=== PATIENT | male | born 1940 | race Caucasian/White ===

== ENCOUNTER 2018-01-11 20:54 | Inpatient (IN) ==
--- NOTE | 2018-01-11 21:38 | XR ---
EXAM DATE: 01/11/2018 9:33 PM EST AGE/SEX: 77 years / Male INDICATIONS: Shortness of breath. CLINICAL DATA: This is the patient's initial encounter. Patient reports that signs and symptoms have been present for 1 day and indicates a pain score of 0/10. MEDICAL/SURGICAL HISTORY: Myocardial infarction. CAD. A-fib. CABG. COMPARISON: C, CHEST 1V SINGLE AP, 01/10/2018. . FINDINGS: Small right and moderate left pleural effusions with basilar consolidation present. No pneumothorax s een on either side. Heart size stable, mildly enlarged. Median sternotomy and valve replacement changes are again noted. CONCLUSION: Worsening consolidation and pleural effusions at both bases, left worse than right. Electronically signed by: Estuardo Zepeda MD 01/11/2018 9:37 PM EST
[2018-01-11 22:14] LABS: Baso % (Auto) 0.3 % (0.0-2.0); Eos # (Auto) 0.2 th/mm3 (0.0-0.4); Eos % (Auto) 1.8 % (0.0-4.0); Hematocrit 33.4 % (39.0-51.0); Hemoglobin 10.7 gm/dL (13.0-17.0); Lymph # (Auto) 0.5 th/mm3 (1.0-4.8); Lymph % (Auto) 4.4 % (9.0-44.0); Mean Corpuscular HGB Conc 32.2 % (32.0-36.0); Mean Corpuscular Volume 86.9 fL (80.0-100.0); Mean Platelet Volume 8.4 fL (7.0-11.0); Mono # (Auto) 0.7 th/mm3 (0.0-0.9); Mono % (Auto) 6.8 % (0.0-8.0); Neut % (Auto) 86.7 % (16.0-70.0); Platelet Count 234 th/mm3 (150-450); Red Blood Count 3.84 mil/mm3 (4.50-5.90); Red Cell Distribution Width 16.8 % (11.6-17.2); White Blood Count 10.4 th/mm3 (4.0-11.0)
[2018-01-11 22:32] LABS: Alanine Aminotransferase 19 U/L (12-78); Albumin 2.4 g/dL (3.4-5.0); Anion Gap 5 meq/L (5-15); Aspartate Aminotransferase 26 U/L (15-37); Blood Urea Nitrogen 21 mg/dL (7-18); Calcium 8.2 mg/dL (8.5-10.1); Carbon Dioxide 29.4 meq/L (21.0-32.0); Chloride 104 meq/L (98-107); Glomerular Filtration Rate 60 mL/min (>89); Glucose,Random 91 mg/dL (74-106); Potassium 4.3 meq/L (3.5-5.1); Sodium 138 meq/L (136-145)
[2018-01-11 22:39] LABS: Alkaline Phosphatase 72 U/L (45-117); Total Protein 6.1 g/dL (6.4-8.2)
[2018-01-11 22:43] LABS: Troponin I 0.64 ng/mL (0.02-0.05)
--- NOTE | 2018-01-11 22:57 | ED ---
HPI General Chief complaint: Respiratory Symptoms Stated complaint: cardiac Time Seen by Provider: 01/11/18 21:17 Source: EMS Mode of arrival: EMS Limitations: no limitations History of Present Illness HPI narrative: 77-year-old male came to the emergency room with history of shortness of breath that started developing this morning. Patient had his CABG 5 days back and was discharged from the hospital to the rehab. The night nurse checked on him and called EMS since his oxygen saturation was in the mid 80s. EMS applied a nasal cannula on 3 L which made the oxygen saturation go up to the 90s. They also did an EKG at the group home which was read by the machine a STEMI. The nurse talked to the doctor who recommended that patient should come to the emergency room to be evaluated. Patient denies any chest pain. He says he has been short of breath but after the oxygen shortness of breath feels much better. Vital signs were stable upon arrival. Patient was afebrile. Related Data Previous Rx's Medication Instructions Recorded amiodarone 400 mg PO Q12HR #30 tab 01/08/18 apixaban [Eliquis] 5 mg PO BID tab 01/08/18 aspirin 81 mg PO DAILY tab 01/08/18 atorvastatin 40 mg PO HS tab 01/08/18 budesonide-formoterol [Symbicort] 1 puff INH BID g 01/08/18 cholecalciferol (vitamin D3) 2,000 unit PO DAILY tab 01/08/18 [Vitamin D3] diltiazem HCl 240 mg PO DAILY cap 01/08/18 docusate sodium [DOK] 100 mg PO BID cap 01/08/18 duloxetine 60 mg PO DAILY cap 01/08/18 hydrocodone-acetaminophen 1 tab PO Q4H PRN #30 tab 01/08/18 uqukmamb-neri-HM-calcium-mins 1 tab PO DAILY tab 01/08/18 [Thera M Plus (ferrous fumarat)] Allergies Allergy/AdvReac Type Severity Reaction Status Date / Time No Known Allergies Allergy Verified 01/11/18 21:21 Review of Systems ROS: all other systems reviewed are negative FOR[facility]LY [facility] Medical History Medical History Coronary artery disease (Acute) Patient denies medical problems (Acute) Surgical History Surgical History S/P wrist surgery (Acute) Family History Family History Mother Age older than 85 years Father Age older than 85 years Social History Social History Substance History: No History of Abuse Second Hand Smoke Exposure: No Smoking Status: Former smoker Tobacco Type: Cigarettes How Often Do You Have a Drink Containing Alcohol: Never Recent Travel in [facility] within the Last 8 Weeks: No Recent Out of Country Travel within the Last 8 Weeks: No Immunization History Tetanus Immunization: Unsure Exam Narrative Exam Narrative: GENERAL: Awake, alert, moderate distress SKIN: Focused skin assessment warm/dry. Pale HEAD: Atraumatic. Normocephalic. EYES: Pupils equal and round. No scleral icterus. No injection or drainage. ENT: No nasal bleeding or discharge. Mucous membranes pink and moist. NECK: Trachea midline. No JVD. CARDIOVASCULAR: Regular rate and rhythm. No murmur appreciated. Chest surgical wound appears to be healing well. RESPIRATORY: No accessory muscle use. Clear to auscultation. Breath sounds equal bilaterally. GASTROINTESTINAL: Abdomen soft, non-tender, nondistended. Hepatic and splenic margins not palpable. MUSCULOSKELETAL: No obvious deformities. No clubbing. No cyanosis. Bilateral pedal edema. NEUROLOGICAL: Awake and alert. No obvious cranial nerve deficits. Motor grossly within normal limits. Normal speech. PSYCHIATRIC: Appropriate mood and affect; insight and judgment normal. Course Initial Documented Vital Signs Pulse Oximetry 99 01/11/18 21:18 Last Documented Vital Signs Temperature 98.3 F 01/12/18 16:00 Pulse Rate 74 01/12/18 17:27 Respiratory Rate 18 01/12/18 16:00 Blood Pressure 118/69 01/12/18 16:00 Pulse Oximetry 98 01/12/18 16:00 Medical Decision Making MDM Narrative Medical decision making narrative: 11 PM blood test results are back. Chest x- ray suggestive of worsening pleural effusion as per the radiologist. Patient was given 40 mg of IV Lasix. I discussed the case with the hospitalist who has admitted the patient. I discussed it with Dr. Andrade who is on-call for thoracic surgery and he will consult on the patient in the morning. Medical Screen Exam Complete: Yes Emergency Medical Condition: Yes Lab Data Result diagrams: 01/12/18 03:12 01/12/18 03:12 Lab Results 01/11/18 01/11/18 01/11/18 Range/Units 21:28 21:28 21:28 WBC 10.4 (4.0-11.0) th/mm3 RBC 3.84 L (4.50-5.90) mil/mm3 Hgb 10.7 L (13.0-17.0) gm/dL Hct 33.4 L (39.0-51.0) % MCV 86.9 (80.0-100.0) fL MCH 28.0 (27.0-34.0) pg MCHC 32.2 (32.0-36.0) % RDW 16.8 (11.6-17.2) % Plt Count 234 D (150-450) th/mm3 MPV 8.4 (7.0-11.0) fL Neut % (Auto) 86.7 H (16.0-70.0) % Lymph % (Auto) 4.4 L (9.0-44.0) % [place] % (Auto) 6.8 (0.0-8.0) % Eos % (Auto) 1.8 (0.0-4.0) % Baso % (Auto) 0.3 (0.0-2.0) % Neut # (Auto) 9.0 H (1.8-7.7) th/mm3 Lymph # (Auto) 0.5 L (1.0-4.8) th/mm3 [place] # (Auto) 0.7 (0.0-0.9) th/mm3 Eos # (Auto) 0.2 (0.0-0.4) th/mm3 Baso # (Auto) 0.0 (0.0-0.2) th/mm3 WBC Differential . Differential Comment Auto diff final Sodium 138 (136-145) meq/L Potassium 4.3 (3.5-5.1) meq/L Chloride 104 (98-107) meq/L Carbon Dioxide 29.4 (21.0-32.0) meq/L Anion Gap 5 (5-15) meq/L BUN 21 H (7-18) mg/dL Creatinine 1.18 (0.60-1.30) mg/dL Estimated GFR 60 L (>89) mL/min Random Glucose 91 (74-106) mg/dL Calcium 8.2 L (8.5-10.1) mg/dL Total Bilirubin 0.8 (0.2-1.0) mg/dL AST 26 (15-37) U/L ALT 19 (12-78) U/L Alkaline Phosphatase 72 (45-117) U/L Troponin I 0.64 H* (0.02-0.05) ng/mL B-Natriuretic Peptide 532 H (0-100) pg/mL Total Protein 6.1 L (6.4-8.2) g/dL Albumin 2.4 L (3.4-5.0) g/dL 01/12/18 01/12/18 01/12/18 Range/Units 03:12 03:12 11:02 WBC 10.1 (4.0-11.0) th/mm3 RBC 3.55 L (4.50-5.90) mil/mm3 Hgb 10.0 L (13.0-17.0) gm/dL Hct 30.1 L (39.0-51.0) % MCV 84.9 (80.0-100.0) fL MCH 28.3 (27.0-34.0) pg MCHC 33.4 (32.0-36.0) % RDW 16.9 (11.6-17.2) % Plt Count 225 (150-450) th/mm3 MPV 7.4 (7.0-11.0) fL Neut % (Auto) 83.8 H (16.0-70.0) % Lymph % (Auto) 4.8 L (9.0-44.0) % [place] % (Auto) 8.3 H (0.0-8.0) % Eos % (Auto) 2.8 (0.0-4.0) % Baso % (Auto) 0.3 (0.0-2.0) % Neut # (Auto) 8.4 H (1.8-7.7) th/mm3 Lymph # (Auto) 0.5 L (1.0-4.8) th/mm3 [place] # (Auto) 0.8 (0.0-0.9) th/mm3 Eos # (Auto) 0.3 (0.0-0.4) th/mm3 Baso # (Auto) 0.0 (0.0-0.2) th/mm3 WBC Differential . Differential Comment Auto diff final Sodium 138 (136-145) meq/L Potassium 3.7 (3.5-5.1) meq/L Chloride 104 (98-107) meq/L Carbon Dioxide 28.1 (21.0-32.0) meq/L Anion Gap 6 (5-15) meq/L BUN 22 H (7-18) mg/dL Creatinine 1.22 (0.60-1.30) mg/dL Estimated GFR 58 L (>89) mL/min Random Glucose 92 (74-106) mg/dL Calcium 8.3 L (8.5-10.1) mg/dL Total Bilirubin 0.8 (0.2-1.0) mg/dL AST 20 (15-37) U/L ALT 17 (12-78) U/L Alkaline Phosphatase 67 (45-117) U/L Troponin I 0.63 H* 0.56 H (0.02-0.05) ng/mL B-Natriuretic Peptide (0-100) pg/mL Total Protein 5.8 L (6.4-8.2) g/dL Albumin 2.3 L (3.4-5.0) g/dL Imaging Data Radiologist's impression: Chest X-Ray 01/11/18 21:18 CONCLUSION: Worsening consolidation and pleural effusions at both bases, left worse than right. ECG Data EKG Prior to Arrival: Yes Attestation: I personally reviewed and interpreted this ECG as follows: Prior ECG tracings: available for review Interpretation: Twelve-lead EKG was reviewed by me. Atrial fibrillation, normal axis, intraventricular conduction delay. Heart rate of 90 bpm Discharge Plan Physicians Team ED Provider: Sunshine Ruiz Primary Care Provider: Primary Care Misai,No Attending Provider: Hollis Kelsey Other Providers: Dea Rowell Sohit K Status ED Status: Left Department Discharge Information Discharge Date/Time: 01/12/18 00:34
[2018-01-11] MEDS ORDERED: Acetaminophen 325 MG Tablet PO PRN (23:02)
[2018-01-11] MEDS ORDERED: Bisacodyl 10 MG Supp RECTAL PRN (23:02)
[2018-01-11] MEDS ORDERED: Morphine Sulfate Inj 2 MG/ML Vial IV.PUSH PRN (23:07)
--- NOTE | 2018-01-11 23:09 | P.HPIM ---
History of Present Illness Primary Care Physician: No Primary Care Physician History of Present Illness: This is a 77-year-old male with a PMH of HTN, CHF (TIEN 12/25/17 w/ EF 45-50%), s/ p CABG/AVR/MVR and A-fib on Eliquis who was sent to the ER from [facility] for c/o SOB and hypoxia. Pt poor historian, lethargic on exam, but able to answer few questions, history obtained from daughter at bedside. Pt w/ recent admit 12/23-01/09/18 for NSTEMI, s/p Cath w/ multivessel disease, Echo 12/23 w/ severe /MR, TIEN 12/25/17 w/ EF 45-50%, s/p CABG, AVR and MVR by Dr. Valera on 12/30/17, ultimately discharged to Rehab after prolonged hospitalization. Daughter states he had been doing well after chest tube removal w/ no c/o SOB, yesterday Daughter noted to be more SOB than baseline, especially w/ ambulation to the restroom. States he had PT today without difficulty, however later on pt w/ worsening c/o SOB. Daughter notes increased lower extremity edema. Per EMS, O2 sat 80's. On arrival, BP 136/80, HR 92, O2 sat 96% on RA, Afebrile. CBC essentially unremarkable. Chemistry is essentially unremarkable except for BUN 21, GFR 60. Troponin 0 0.64, BNP 532. CXR with worsening consolidation and pleural effusions at both bases, left worse than right. S/p Lasix in ER. Dr. Funes consulted by ER physician, no immediate surgical intervention at this time. - Diagnosis (1) CHF (congestive heart failure) (2) Hypoxia (3) Elevated troponin (4) Afib (5) Decubitus skin ulcer (6) S/P AVR (7) S/P mitral valve repair (8) S/P CABG x 3 Review of Systems PAST FAMILY HISTORY: Reviewed. 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 - Medical History Medical History: Medical History (Last Reviewed 01/11/18 @ 22:55 by Sunshine Ruiz MD) Coronary artery disease Patient denies medical problems - Surgical History Surgical History: Surgical History (Last Reviewed 01/11/18 @ 22:55 by Sunshine Ruiz MD) S/P wrist surgery - Family History Family History: Family History (Last Reviewed 01/11/18 @ 22:55 by Sunshine Ruiz MD) Mother Age older than 85 years Father Age older than 85 years - Tobacco History Second Hand Smoke Exposure: No Smoking Status: Former smoker Tobacco Type: Cigarettes - Alcohol History How Often Do You Have a Drink Containing Alcohol: Never - Substance Use History Substance History: No History of Abuse - Travel History Recent Travel in the [place] Within the Last 8 Weeks: No Recent Travel Out of the Country Within the Last 8 Weeks: No - Immunization History Tetanus Immunization: Unsure Medications and Allergies Allergies Allergy/AdvReac Type Severity Reaction Status Date / Time No Known Allergies Allergy Verified 01/11/18 21:21 Exam Vital signs: Vital Signs 01/11/18 21:18 01/11/18 21:19 01/11/18 21:23 Temperature 97.8 F Pulse Rate 92 H 98 H Respiratory Rate 18 18 Blood Pressure 136/60 118/77 Pulse Oximetry 99 96 100 01/11/18 22:14 Temperature Pulse Rate 93 H Respiratory Rate 18 Blood Pressure 116/65 Pulse Oximetry 98 Narrative: PE: GENERAL: Elderly white male in no acute distress, sleeping, but opens eyes to name/answers questions. Daughter at bedside SKIN: Focused skin assessment warm and dry. HEENT: PERRLA, EOMI. No scleral icterus or conjunctival pallor. No lid lag or facial droop. CARDIOVASCULAR: Irregular irregular, in A-fib, rate controlled. No obvious murmurs to auscultation. No chest tenderness to palpation. Surgical scar healing well. Chest tube sites healing well, mild erythema, no purulent drainage. RESPIRATORY: No obvious rhonchi or wheezing. Clear to auscultation. Breath sounds equal bilaterally. GASTROINTESTINAL: Abdomen soft, non-tender, nondistended. BS normal. MUSCULOSKELETAL: Extremities without clubbing, cyanosis. 2+ edema. No obvious deformities. NEUROLOGICAL: Awake, alert and oriented x4. No focal neurologic deficits. Moving both upper and lower extremities spontaneously. PSYCHIATRIC: Appropriate mood and affect. Insight and judgment normal. Results - Labs CBC & Chem 7: 01/11/18 21:28 01/11/18 21:28 Labs: Short CBC 01/11/18 Range/Units 21:28 WBC 10.4 (4.0-11.0) th/mm3 Hgb 10.7 L (13.0-17.0) gm/dL Hct 33.4 L (39.0-51.0) % Plt Count 234 D (150-450) th/mm3 BMP 01/11/18 21:28 Sodium 138 Potassium 4.3 Chloride 104 Carbon Dioxide 29.4 BUN 21 H Creatinine 1.18 Calcium 8.2 L Cardiac Enzymes 01/11/18 Range/Units 21:28 Troponin I 0.64 H* (0.02-0.05) ng/mL Liver Function 01/11/18 Range/Units 21:28 Total Bilirubin 0.8 (0.2-1.0) mg/dL AST 26 (15-37) U/L ALT 19 (12-78) U/L Alkaline Phosphatase 72 (45-117) U/L Albumin 2.4 L (3.4-5.0) g/dL - Imaging Impressions Chest X-Ray 01/11/18 21:18 CONCLUSION: Worsening consolidation and pleural effusions at both bases, left worse than right. Caprini VTE Risk Assessment Caprini VTE Risk Assessment: Moderate/High Risk (score >= 2) Caprini Risk Assessment Model: Point Value = 1 Point Value = 2 Point Value = 3 Point Value = 5 Age 41-60 Minor surgery BMI > 25 kg/m2 Swollen legs Varicose veins or History of unexplained or recurrent spontaneous Oral contraceptives or hormone replacement Sepsis (< 1 month) Serious lung disease, including pneumonia (< 1 month) Abnormal pulmonary function Acute myocardial infarction Congestive heart failure (< 1 month) History of inflammatory bowel disease Medical patient at bed rest Age 61-74 Arthroscopic surgery Major open surgery (> 45 min) Laparoscopic surgery (> 45 min) Malignancy Confined to bed (> 72 hours) Immobilizing plaster cast Central venous access Age >= 75 History of VTE Family history of VTE Factor V Leiden Prothrombin [id number] Lupus anticoagulant Anticardiolipin antibodies Elevated serum homocysteine Heparin-induced thrombocytopenia Other congenital or acquired thrombophilia Stroke (< 1 month) Elective arthroplasty Hip, pelvis, or leg fracture Acute spinal cord injury (< 1 month) Prophylaxis Regimen: Total Risk Factor Score Risk Level Prophylaxis Regimen 0-1 Low Early ambulation 2 Moderate Order ONE of the following: *Sequential Compression Device (SCD) *Heparin 5000 units SQ BID 3-4 Higher Order ONE of the following medications: *Heparin 5000 units SQ TID *Enoxaparin/Lovenox 40 mg SQ daily (WT < 150 kg, CrCl > 30 mL/min) *Enoxaparin/Lovenox 30 mg SQ daily (WT < 150 kg, CrCl > 10-29 mL/min) *Enoxaparin/Lovenox 30 mg SQ BID (WT < 150 kg, CrCl > 30 mL/min) AND/OR *Sequential Compression Device (SCD) 5 or more Highest Order ONE of the following medications: *Heparin 5000 units SQ TID (Preferred with Epidurals) *Enoxaparin/Lovenox 40 mg SQ daily (WT < 150 kg, CrCl > 30 mL/min) *Enoxaparin/Lovenox 30 mg SQ daily (WT < 150 kg, CrCl > 10-29 mL/min) *Enoxaparin/Lovenox 30 mg SQ BID (WT < 150 kg, CrCl > 30 mL/min) AND *Sequential Compression Device (SCD) Assessment and Plan - Assessment (1) CHF (congestive heart failure) Code(s): I50.9 - Heart failure, unspecified Status: Acute (2) Hypoxia Code(s): R09.02 - Hypoxemia Status: Acute (3) Elevated troponin Code(s): R74.8 - Abnormal levels of other serum enzymes Status: Acute (4) Afib Code(s): I48.91 - Unspecified atrial fibrillation Status: Acute (5) Decubitus skin ulcer Code(s): L89.90 - Pressure ulcer of unspecified site, unspecified stage Status : Acute (6) S/P AVR Code(s): Z95.2 - Presence of prosthetic heart valve Status: Acute (7) S/P mitral valve repair Code(s): Z98.890 - Other specified postprocedural states Status: Acute (8) S/P CABG x 3 Code(s): Z95.1 - Presence of aortocoronary bypass graft Status: Acute - Plan A/P: 1. CHF: Acute on Chronic. Systolic. TIEN 12/25/17 w/ EF 45-50%, CXR w/ worsening consolidation/pleural effusions bilaterally, images reviewed. BNP 532. S/p Lasix in ER, will continue w/ diuresis, monitor I/O, monitor renal function closely. 2. S/p CABG/AVR/MVR: 12/30/[address] Valera, will check Echo to eval for any valve abnormality in light of recent surgical intervention. Dr. Funes consulted by ER physician, no immediate surgical intervention at this time. 3. Elevated Trop: Trop 0.64, likely due to recent cardiac intervention, no c/ o chest pain. Will admit to [facility] for close monitoring, telemetry, check serial cardiac enzymes for trend. Follows w/ Dr. Howard, will place consult for further recommendations. 4. Hypoxia: O2 sat 80's per EMS, currently 96% on RA since arrival, likely compounded by acute CHF in addition to narcotic medications as daughter notes increased lethargy while on pain medications, monitor O2, DuoNeb-substitute for Xopenex in light of A-fib 5. A-fib: Chronic. Resume home Cardizem, Amiodarone and Eliquis. 6. Decubitus Ulcer: present on arrival, consult Wound Management for further eval. 7. DVT Prophylaxis: Eliquis 8. Social work for d/c planning as needed. PT for eval/tx 9. Case discussed w/ ER physician at length, labs/records/imaging reviewed by me.
[2018-01-11] MEDS ORDERED: RESP: Levalbuterol 1.25 MG/3 ML Neb (PRN) NEB (23:44)
[2018-01-12 03:23] LABS: Baso % (Auto) 0.3 % (0.0-2.0); Eos # (Auto) 0.3 th/mm3 (0.0-0.4); Eos % (Auto) 2.8 % (0.0-4.0); Hematocrit 30.1 % (39.0-51.0); Lymph # (Auto) 0.5 th/mm3 (1.0-4.8); Lymph % (Auto) 4.8 % (9.0-44.0); Mean Corpuscular HGB Conc 33.4 % (32.0-36.0); Mean Corpuscular Hemoglobin 28.3 pg (27.0-34.0); Mean Corpuscular Volume 84.9 fL (80.0-100.0); Mean Platelet Volume 7.4 fL (7.0-11.0); Mono # (Auto) 0.8 th/mm3 (0.0-0.9); Mono % (Auto) 8.3 % (0.0-8.0); Neut # (Auto) 8.4 th/mm3 (1.8-7.7); Neut % (Auto) 83.8 % (16.0-70.0); Platelet Count 225 th/mm3 (150-450); Red Blood Count 3.55 mil/mm3 (4.50-5.90); Red Cell Distribution Width 16.9 % (11.6-17.2); White Blood Count 10.1 th/mm3 (4.0-11.0)
[2018-01-12 03:43] LABS: Alanine Aminotransferase 17 U/L (12-78); Albumin 2.3 g/dL (3.4-5.0); Anion Gap 6 meq/L (5-15); Aspartate Aminotransferase 20 U/L (15-37); Blood Urea Nitrogen 22 mg/dL (7-18); Calcium 8.3 mg/dL (8.5-10.1); Carbon Dioxide 28.1 meq/L (21.0-32.0); Chloride 104 meq/L (98-107); Glomerular Filtration Rate 58 mL/min (>89); Glucose,Random 92 mg/dL (74-106); Potassium 3.7 meq/L (3.5-5.1); Sodium 138 meq/L (136-145)
[2018-01-12 03:47] LABS: Alkaline Phosphatase 67 U/L (45-117); Total Protein 5.8 g/dL (6.4-8.2)
[2018-01-12 03:52] LABS: Troponin I 0.63 ng/mL (0.02-0.05)
[2018-01-12] MEDS ORDERED: Amiodarone 200 MG Tablet PO SCH (09:00)
[2018-01-12] MEDS: Duloxetine 60 MG DR Capsule PO SCH (09:12)
[2018-01-12] MEDS: Amiodarone 200 MG Tablet PO SCH ×2 (09:12→20:08)
[2018-01-12] MEDS: dilTIAZem CD 240 MG Capsule PO SCH (09:12)
[2018-01-12] MEDS: Senna/Docusate Sodium 8.6/50 MG Tablet PO SCH ×2 (09:13→20:09)
[2018-01-12] MEDS: Budesonide-Formoterol 80/4.5 MCG 6.9 GM Inhaler INH SCH (09:13)
[2018-01-12] MEDS: Multivitamin/Minerals Therapeutic Tablet PO SCH (09:13)
--- NOTE | 2018-01-12 12:40 | P.PN ---
Subjective Interval history: For acute on chronic congestive heart failure, recent CABG/AVR/MVR, atrial fibrillation. Patient reports feeling much better. He is currently on 2 L of oxygen via nasal cannula. No chest pain, fever or chills. Physical Exam Vital signs: Vital Signs 01/11/18 21:18 01/11/18 21:19 01/11/18 21:23 Temperature 97.8 F Pulse Rate 92 H 98 H Respiratory Rate 18 18 Blood Pressure 136/60 118/77 Pulse Oximetry 99 96 100 01/11/18 22:14 01/11/18 23:51 01/12/18 00:00 Temperature 98.4 F Pulse Rate 93 H 98 H 93 H Respiratory Rate 18 18 20 Blood Pressure 116/65 134/67 120/70 Pulse Oximetry 98 98 95 01/12/18 00:20 01/12/18 01:00 01/12/18 02:00 Temperature Pulse Rate 98 H 88 94 H Respiratory Rate Blood Pressure Pulse Oximetry 01/12/18 03:00 01/12/18 04:00 01/12/18 05:00 Temperature 98.5 F Pulse Rate 86 90 104 H Respiratory Rate 20 Blood Pressure 112/67 Pulse Oximetry 97 01/12/18 07:00 01/12/18 07:42 01/12/18 07:58 Temperature 98.3 F Pulse Rate 113 H 97 H 98 H Respiratory Rate 21 Blood Pressure 115/69 Pulse Oximetry 98 01/12/18 08:02 01/12/18 09:54 01/12/18 10:00 Temperature Pulse Rate 106 H 120 H Respiratory Rate Blood Pressure Pulse Oximetry 95 01/12/18 11:00 01/12/18 11:21 Temperature 98.1 F Pulse Rate 128 H 115 H Respiratory Rate 17 Blood Pressure 107/75 Pulse Oximetry 97 Intake & Output 01/11/18 01/12/18 01/12/18 18:59 06:59 18:59 Weight 74 kg Narrative: GENERAL: Alert, NAD. SKIN: Warm and dry. HEAD: Normocephalic. EYES: No scleral icterus. No injection or drainage. NECK: Supple, trachea midline. No JVD or lymphadenopathy. CARDIOVASCULAR: Regular rate and rhythm without murmurs, gallops, or rubs. RESPIRATORY: Moderate air entry. No accessory muscle use. Bibasilar mild crackles. GASTROINTESTINAL: Abdomen soft, non-tender, nondistended. MUSCULOSKELETAL: No cyanosis. Lower ext edema 1+. BACK: Nontender without obvious deformity. No CVA tenderness. Results - Labs CBC & Chem 7: 01/12/18 03:12 01/12/18 03:12 Laboratory Results - last 24 hr 01/11/18 01/11/18 01/11/18 21:28 21:28 21:28 WBC 10.4 RBC 3.84 L Hgb 10.7 L Hct 33.4 L MCV 86.9 MCH 28.0 MCHC 32.2 RDW 16.8 Plt Count 234 D MPV 8.4 Neut % (Auto) 86.7 H Lymph % (Auto) 4.4 L [place]ck[place] % (Auto) 6.8 Eos % (Auto) 1.8 Baso % (Auto) 0.3 Neut # (Auto) 9.0 H Lymph # (Auto) 0.5 L [place] # (Auto) 0.7 Eos # (Auto) 0.2 Baso # (Auto) 0.0 WBC Differential . Differential Comment Auto diff final Sodium 138 Potassium 4.3 Chloride 104 Carbon Dioxide 29.4 Anion Gap 5 BUN 21 H Creatinine 1.18 Estimated GFR 60 L Random Glucose 91 Calcium 8.2 L Total Bilirubin 0.8 AST 26 ALT 19 Alkaline Phosphatase 72 Troponin I 0.64 H* B-Natriuretic Peptide 532 H Total Protein 6.1 L Albumin 2.4 L 01/12/18 01/12/18 01/12/18 03:12 03:12 11:02 WBC 10.1 RBC 3.55 L Hgb 10.0 L Hct 30.1 L MCV 84.9 MCH 28.3 MCHC 33.4 RDW 16.9 Plt Count 225 MPV 7.4 Neut % (Auto) 83.8 H Lymph % (Auto) 4.8 L [place] % (Auto) 8.3 H Eos % (Auto) 2.8 Baso % (Auto) 0.3 Neut # (Auto) 8.4 H Lymph # (Auto) 0.5 L [place] # (Auto) 0.8 Eos # (Auto) 0.3 Baso # (Auto) 0.0 WBC Differential . Differential Comment Auto diff final Sodium 138 Potassium 3.7 Chloride 104 Carbon Dioxide 28.1 Anion Gap 6 BUN 22 H Creatinine 1.22 Estimated GFR 58 L Random Glucose 92 Calcium 8.3 L Total Bilirubin 0.8 AST 20 ALT 17 Alkaline Phosphatase 67 Troponin I 0.63 H* 0.56 H B-Natriuretic Peptide Total Protein 5.8 L Albumin 2.3 L - Imaging Impressions Chest X-Ray 01/11/18 21:18 CONCLUSION: Worsening consolidation and pleural effusions at both bases, left worse than right. - Procedures None. Assessment and Plan - Assessment (1) CHF (congestive heart failure) Code(s): I50.9 - Heart failure, unspecified Status: Acute (2) Hypoxia Code(s): R09.02 - Hypoxemia Status: Acute (3) Elevated troponin Code(s): R74.8 - Abnormal levels of other serum enzymes Status: Acute (4) Afib Code(s): I48.91 - Unspecified atrial fibrillation Status: Acute (5) Decubitus skin ulcer Code(s): L89.90 - Pressure ulcer of unspecified site, unspecified stage Status : Acute (6) S/P AVR Code(s): Z95.2 - Presence of prosthetic heart valve Status: Acute (7) S/P mitral valve repair Code(s): Z98.890 - Other specified postprocedural states Status: Acute (8) S/P CABG x 3 Code(s): Z95.1 - Presence of aortocoronary bypass graft Status: Acute - Plan This is a 77-year-old male with a PMH of HTN, CHF (TIEN 12/25/17 w/ EF 45-50%), s/ p CABG/AVR/MVR and A-fib on Eliquis who was sent to the ER from [facility] for c/o SOB and hypoxia. Pt w/ recent admit 12/23-01/09/18 for NSTEMI, s/p Cath w/ multivessel disease, Echo 12/23 w/ severe /MR, TIEN 12/25/17 w/ EF 45-50% , s/p CABG, AVR and MVR by Dr. Valera on 12/30/17, ultimately discharged to Rehab after prolonged hospitalization. Per EMS, O2 sat 80's. On arrival, BP 136/80, HR 92, O2 sat 96% on RA, Afebrile. Chest x-ray shows worsening consolidation and pleural effusions at both lung bases, left worse than right. Acute on chronic congestive heart failure with preserved ejection fraction Acute hypoxic respiratory failure due to congestive heart failure TIEN on 12/25/2017 shows ejection fraction 45-50%. Patient is status post CABG/ AVR/MVR. Continue Lasix 40 mg IV every 12 hours. Cardiology and cardiothoracic surgery consulted. Supplemental oxygen to keep O2 saturation around 90%. Mild elevation in troponin is likely due to recent CABG. BNP 532. Continue amiodarone 400 mg p.o. every 12 hours. Continue aspirin, atorvastatin Atrovent nebulizer treatment as needed. Atrial fibrillation Continue diltiazem 240 mg p.o. daily. Continue metoprolol tartrate 25 mg p.o. twice daily. Continue aspirin as well as apixaban 5 mg p.o. twice daily Full code. Apixaban.
--- NOTE | 2018-01-12 14:12 | ECG ---
Date Performed: 01/11/2018 Time Performed: 20:57:53 PTAGE: 77 years EKG: ATRIAL FLUTTER/TACHYCARDIA INTRAVENTRICULAR CONDUCTION DELAY LATERAL MYOCARDIAL INFARCTION ANTEROLATERAL MYOCARDIAL INFARCTION, AGE INDETERMINATE PREVIOUS TRACING : 09.26 DOCTOR: Cash Singh Interpretating Date/Time 01/12/2018 14:11:47
[2018-01-12] MEDS: Metoprolol Tartrate 25 MG Tablet PO SCH ×2 (15:00→20:09)
--- NOTE | 2018-01-12 15:02 | ECHRPT ---
Indication: SHORTNESS OF BREATH CONCLUSIONS Normal left ventricular size. Mild concentric left ventricular hypertrophy. The left ventricular systolic function is moderately reduced with an estimated ejection fraction in the range of 40-45%. The left atrial size is [id number] dilated. Mitral valve annuloplasty ring is present. Mild mitral valve regurgitation. The aortic valve prosthesis is normal to two-dimensional and Doppler interrogation. Mild aortic valve regurgitation. Aortic valve mean gradient is 18 mmHg. There is mild tricuspid valve regurgitation. The estimated pulmonary arterial pressure is 50.7 mmHg. Trivial pulmonary valve regurgitation. There is less than 50% respiratory change in dimension of the inferior vena cava (abnormal). Large pleural effusion. BP: / HR: Rhythm: Sinus MEASUREMENTS (Male / Female) Normal Values Technical Quality:Fair 2D ECHO LV Diastolic Diameter PLAX 5.4 cm 4.2 - 5.9 / 3.9 - 5.3 cm LV Systolic Diameter PLAX 4.5 cm IVS Diastolic Thickness 1.2 cm 0.6 - 1.0 / 0.6 - 0.9 cm LVPW Diastolic Thickness 1.2 cm 0.6 - 1.0 / 0.6 - 0.9 cm LV Relative Wall Thickness 0.5 RV Internal Dim ED PLAX 2.9 cm LVOT Diameter 1.6 cm Aortic Root Diameter 3.0 cm LA Systolic Diameter LX 4.7 cm 3.0 - 4.0 / 2.7 - 3.8 cm DOPPLER AV Peak Velocity 292.0 cm/s AV Peak Gradient 34.1 mmHg AV Mean Gradient 18.0 mmHg AV Velocity Time Integral 40.0 cm LVOT Peak Velocity 136.0 cm/s LVOT Peak Gradient 7.4 mmHg LVOT Velocity Time Integral 18.2 cm AV Area Cont Eq vti 0.9 cm AV Area Cont Eq pk 0.9 cm LV E' Lateral Velocity 9.2 cm/s LV E' Septal Velocity 3.4 cm/s TR Peak Velocity 319.0 cm/s TR Peak Gradient 40.7 mmHg Right Atrial Pressure 10.0 mmHg Pulmonary Artery Systolic Pressu 50.7 mmHg Right Ventricular Systolic Press 50.7 mmHg FINDINGS LEFT VENTRICLE Normal left ventricular size. Mild concentric left ventricular hypertrophy. The left ventricular systolic function is moderately reduced with an estimated ejection fraction in the range of 40-45%. RIGHT VENTRICLE Normal right ventricular size and systolic function. LEFT ATRIUM The left atrial size is [id number] dilated. RIGHT ATRIUM The right atrial size is normal. ATRIAL SEPTUM No atrial level shunt is demonstrated by color flow Doppler interrogation. AORTA The aortic root and proximal ascending aorta are normal in size on limited imaging. MITRAL VALVE Mitral valve annuloplasty ring is present. Mild mitral valve regurgitation. AORTIC VALVE The aortic valve prosthesis is normal to two-dimensional and Doppler interrogation. Mild aortic valve regurgitation. Aortic valve mean gradient is 18 mmHg. TRICUSPID VALVE There is mild tricuspid valve regurgitation. The estimated pulmonary arterial pressure is 50.7 mmHg. PULMONARY VALVE Trivial pulmonary valve regurgitation. VESSELS There is less than 50% respiratory change in dimension of the inferior vena cava (abnormal). PERICARDIUM Large pleural effusion. No pericardial effusion. Cash Singh MD, FACC, [facility] [place] (Electronically Signed) Final Date:12 January 2018 15:01
--- NOTE | 2018-01-12 15:14 | MB ---
cc: Dea Rowell MD DATE: 01/12/2018 REASON FOR CONSULTATION: CHF. HISTORY OF PRESENT ILLNESS: Mr. Caballero is a 77-year-old patient of my partner, Dr. Howard. He underwent an open heart surgery procedure on 12/30/2017 with a 23 mm Medtronic Mosaic tissue valve, mitral valve repair and CABG x 3 with a HARVEY to LAD, SVG to OM2 and SVG to the ramus. The patient has a known cardiomyopathy with an EF of 45%. He was discharged last week to [facility]. He presented back to the emergency room yesterday, which was the Saturday after Thanksgiving. His daughter did bring in a [employer] Thanks dinner. His presentation to the emergency room was for progressive shortness of breath and fatigue. The patient reports today that he does continue to be fatigued, but his breathing is some better. He attributes this to the oxygen. PAST MEDICAL HISTORY: Includes aortic stenosis, status post AVR, mitral valve repair, CABG as above, ischemic cardiomyopathy and atrial fibrillation. ALLERGIES: NO KNOWN DRUG ALLERGIES. CURRENT MEDICATIONS: Per the record. OUTPATIENT MEDICATIONS: Included: 1. Amiodarone. 2. Eliquis. 3. Aspirin. 4. Atorvastatin. 5. Symbicort. 6. Vitamin D. 7. Cardizem. 8. Docusate. 9. Hydrocodone/acetaminophen. FAMILY HISTORY: Noncontributory. SOCIAL HISTORY: The patient is a former smoker. REVIEW OF SYSTEMS: Except as mentioned in the HPI, all 12 systems are negative. PHYSICAL EXAMINATION: VITAL SIGNS: 98.1, 115, 107/75. GENERAL: He is a thin man who is in no apparent distress. NECK: Free from JVD. LUNGS: Very decreased, but seemingly clear to auscultation. CARDIOVASCULAR: He has an irregularly irregular rhythm. No murmurs, rubs or gallops are appreciated. ABDOMEN: Soft. EXTREMITIES: There is a mild amount of ankle edema. LABORATORY AND DIAGNOSTIC DATA: EKG shows atrial flutter. Lab values are significant for a hemoglobin of 10. His creatinine is 1.2, which is up from 1.0 at discharge. Chest x-ray from 01/11/2018 shows worsening consolidation and pleural effusions at both bases. IMPRESSION: 1. Acute on chronic systolic heart failure - the patient clearly has cardiomyopathy with a prior ejection fraction of 45%. His current echo is pending. He does appear to be improving in terms of his edema. He presents with progressive shortness of breath after a Thanksgiving dinner with some edema as well as his chest x-ray was suggestive of worsening effusions. His BNP was elevated at 532. This is all consistent with heart failure. His BUN to creatinine ratio is over 20:1 as well as his creatinine is mildly increased suggesting that he is diuresed. He may have components to his shortness of breath that also include the COPD and atrial fibrillation with rapid ventricular response. 2. Atrial fibrillation with rapid ventricular response - I do agree with continuing the amiodarone and Cardizem that was outpatient scheduled. I am also going to add a low dose of beta blockade given his congestive heart failure and rapid ventricular response. 3. Chronic obstructive pulmonary disease - the patient has a [id number] smoking history. This is also a contributing factor to his shortness of breath. Dr. Howard will be available in the a.m. MD DEBBIE Coates/kathleen , 11:41 AM , 11:53 AM
[2018-01-13] MEDS: Budesonide-Formoterol 80/4.5 MCG 6.9 GM Inhaler INH SCH (08:00)
[2018-01-13] MEDS: Duloxetine 60 MG DR Capsule PO SCH (08:01)
[2018-01-13] MEDS: Senna/Docusate Sodium 8.6/50 MG Tablet PO SCH ×2 (08:01→20:22)
[2018-01-13] MEDS: dilTIAZem CD 240 MG Capsule PO SCH (08:01)
[2018-01-13] MEDS: Multivitamin/Minerals Therapeutic Tablet PO SCH (08:01)
[2018-01-13] MEDS: Amiodarone 200 MG Tablet PO SCH ×2 (08:01→20:25)
[2018-01-13] MEDS: Metoprolol Tartrate 25 MG Tablet PO SCH ×2 (08:01→20:23)
--- NOTE | 2018-01-13 10:02 | XR ---
EXAM DATE: 01/13/2018 9:52 AM EST AGE/SEX: 77 years / Male INDICATIONS: Shortness of breath. CLINICAL DATA: This is the patient's subsequent encounter. Patient reports that signs and symptoms h ave been present for 3 days and indicates a pain score of 0/10. MEDICAL/SURGICAL HISTORY: Myocardial infarction. CAD. A-fib CABG. COMPARISON: C, CHEST 1V SINGLE AP, 01/11/2018. . FINDINGS: Hazy bibasilar pleural-parenchymal opacities are present, slightly worse on the left than the right. Cardiac contours are unchanged. CONCLUSION: Slight interval worsening in aeration Electronically signed by: Estuardo Pepe MD 01/13/2018 10:00 AM EST
[2018-01-13 11:14] LABS: Baso # (Auto) 0.1 th/mm3 (0.0-0.2); Baso % (Auto) 0.6 % (0.0-2.0); Eos # (Auto) 0.3 th/mm3 (0.0-0.4); Eos % (Auto) 2.8 % (0.0-4.0); Hematocrit 31.2 % (39.0-51.0); Hemoglobin 10.3 gm/dL (13.0-17.0); Lymph # (Auto) 0.6 th/mm3 (1.0-4.8); Lymph % (Auto) 6.2 % (9.0-44.0); Mean Corpuscular Hemoglobin 28.6 pg (27.0-34.0); Mean Corpuscular Volume 86.7 fL (80.0-100.0); Mean Platelet Volume 8.1 fL (7.0-11.0); Mono # (Auto) 0.9 th/mm3 (0.0-0.9); Mono % (Auto) 9.1 % (0.0-8.0); Neut # (Auto) 8.4 th/mm3 (1.8-7.7); Neut % (Auto) 81.3 % (16.0-70.0); Platelet Count 260 th/mm3 (150-450); Red Cell Distribution Width 16.9 % (11.6-17.2); White Blood Count 10.4 th/mm3 (4.0-11.0)
[2018-01-13 11:25] LABS: Calcium 8.6 mg/dL (8.5-10.1); Carbon Dioxide 32.6 meq/L (21.0-32.0); Potassium 4.3 meq/L (3.5-5.1)
--- NOTE | 2018-01-13 11:38 | P.PNCV ---
- Note Subjective/Hospital Course: 77-year-old known to our service / [facility] /01/10/18 following open heart surgery procedure on 12/30/2017 with a 23 mm Medtronic Mosaic tissue valve, mitral valve repair and CABG x 3 with a HARVEY to LAD, SVG to OM2 and SVG to the ramus. The patient has a known cardiomyopathy with an EF of 45%. He presented back to the emergency room yesterday, which was the Saturday after Thanksgiving. His daughter did bring in a [employer] Thanksgiving dinner. His presentation to the emergency room was for progressive shortness of breath and fatigue, and lower ext edema . Pt was on room air at discharge, was still in Afib / rate controlled / on amiodarone, cardizem and eliquis . HR 128 on admission in afib PAST MEDICAL HISTORY: Includes aortic stenosis, status post AVR, mitral valve repair, CABG as above, ischemic cardiomyopathy and atrial fibrillation. 01/13 CXR shows some bilateral opacities/ L>R exp wheeze, lower ext edema agree with diuresis and antibiotics will need to start tapering amiodarone / BB added/ pt tolerating feels better today, on nasal cannula 100% on 2 liters surgical incision intact and well approximated Objective: Vital Signs - 24 hr 01/12/18 13:00 01/12/18 14:00 01/12/18 15:00 Temperature Pulse Rate 84 78 84 Respiratory Rate Blood Pressure Pulse Oximetry 01/12/18 16:00 01/12/18 17:00 01/12/18 17:27 Temperature 98.3 F Pulse Rate 73 73 74 Respiratory Rate 18 Blood Pressure 118/69 Pulse Oximetry 98 01/12/18 19:00 01/12/18 20:00 01/12/18 21:00 Temperature 98.7 F Pulse Rate 90 68 63 Respiratory Rate 17 Blood Pressure 102/56 L Pulse Oximetry 96 01/12/18 22:00 01/12/18 23:00 01/13/18 00:00 Temperature 98.9 F Pulse Rate 65 63 66 Respiratory Rate 17 Blood Pressure 99/57 L Pulse Oximetry 92 L 01/13/18 01:00 01/13/18 02:00 01/13/18 03:00 Temperature Pulse Rate 65 83 86 Respiratory Rate Blood Pressure Pulse Oximetry 01/13/18 04:00 01/13/18 05:00 01/13/18 07:00 Temperature 97.9 F Pulse Rate 84 92 H 90 Respiratory Rate 17 Blood Pressure 100/56 L Pulse Oximetry 96 01/13/18 08:00 01/13/18 09:00 01/13/18 10:00 Temperature 98.6 F Pulse Rate 72 92 H 67 Respiratory Rate 20 Blood Pressure 102/66 Pulse Oximetry 99 01/13/18 10:46 01/13/18 11:00 Temperature Pulse Rate 72 Respiratory Rate Blood Pressure Pulse Oximetry 100 GENERAL: A&O x 3 SKIN: Warm and dry. sternal incision intact and well approximated HEAD: Normocephalic. EYES: No scleral icterus. No injection or drainage. NECK: Supple, trachea midline. No JVD or lymphadenopathy. CARDIOVASCULAR: irregular rate and rhythm without murmurs, gallops, or rubs. + 1 lower ext edema , left leg slightly bigger than right , incision intact and well approximated RESPIRATORY: diminshed in bases L>R faint exp wheeze Breath sounds equal bilaterally. No accessory muscle use. GASTROINTESTINAL: Abdomen soft, non-tender, nondistended. MUSCULOSKELETAL: No cyanosis, or edema. BACK: Nontender without obvious deformity. No CVA tenderness. Labs: Laboratory Results - last 12 hr 01/13/18 01/13/18 10:14 10:14 WBC 10.4 RBC 3.60 L Hgb 10.3 L Hct 31.2 L MCV 86.7 MCH 28.6 MCHC 33.0 RDW 16.9 Plt Count 260 MPV 8.1 Neut % (Auto) 81.3 H Lymph % (Auto) 6.2 L [place] % (Auto) 9.1 H Eos % (Auto) 2.8 Baso % (Auto) 0.6 Neut # (Auto) 8.4 H Lymph # (Auto) 0.6 L [place] # (Auto) 0.9 Eos # (Auto) 0.3 Baso # (Auto) 0.1 WBC Differential . Differential Comment Auto diff final Sodium 138 Potassium 4.3 Chloride 101 Carbon Dioxide 32.6 H Anion Gap 4 L BUN 23 H Creatinine 1.43 H Estimated GFR 48 L Random Glucose 125 H Calcium 8.6 Result Diagrams: 01/13/18 10:14 01/13/18 10:14 Telemetry: afib - Plan (5) Systolic heart failure Plan: on diuretics (10) S/P CABG x 3 Plan: ASA, BB , statin OOB ambulate wean o2 PT / (11) Atrial fibrillation Plan: taper dose amiodarone , on cardizem and BB eliquis
[2018-01-13] MEDS: levoFLOXacin 750 MG Tablet PO SCH (12:04)
--- NOTE | 2018-01-13 12:20 | P.PNCA ---
Subjective Interval history: Doing better Breathing better, no chest pain Diuresed 1 L yesterday Medications and Allergies Active Medications: Active Medications Acetaminophen (Tylenol) 650 mg PO Q4H PRN PRN Reason: Temp > 100.4 Hydrocodone Bitart/Acetaminophen ([place] 5/325) 1 tab PO Q4H PRN PRN Reason: Pain Scale 1 To 5 Al Hydroxide/Mg Hydroxide (Milk Of Magnesia Liq) 30 ml PO Q12H PRN PRN Reason: Mild Constipation Amiodarone HCl (Cordarone) 200 mg PO Q12HR [facility] Apixaban (Eliquis) 5 mg PO BID [facility] Last Admin: 01/13/18 08:01 Dose: 5 mg Aspirin (Ecotrin) 81 mg PO DAILY [facility] Last Admin: 01/13/18 08:01 Dose: 81 mg Atorvastatin Calcium (Lipitor) 40 mg PO HS [facility] Last Admin: 01/12/18 20:08 Dose: 40 mg Bisacodyl (Dulcolax Supp) 10 mg RECTAL DAILY PRN PRN Reason: SEVERE CONSITIPATION Budesonide/Formoterol Fumarate (Symbicort 80/4.5 Mcg Inh) 1 puff INH BID [facility] Last Admin: 01/13/18 08:00 Dose: 1 puff Diltiazem HCl (Cardizem Cd 24hr) 240 mg PO DAILY [facility] Last Admin: 01/13/18 08:01 Dose: 240 mg Duloxetine HCl (Cymbalta) 60 mg PO DAILY [facility] Last Admin: 01/13/18 08:01 Dose: 60 mg Furosemide (Lasix Inj) 20 mg IV.PUSH BID@0900,1800 [facility] Last Admin: 01/13/18 08:02 Dose: 20 mg Ipratropium [place] (Atrovent Neb) 1 mg NEB Q4HR NEB PRN PRN Reason: SOB/WHEEZING Lactulose (Lactulose Liq) 30 ml PO DAILY PRN PRN Reason: SEVERE CONSITIPATION Levalbuterol HCl (Xopenex Neb) 1 mg NEB Q4HR NEB PRN PRN Reason: SOB/WHEEZING Levofloxacin (Levaquin) 750 mg PO Q24H [facility] Stop: 01/18/18 11:59 Last Admin: 01/13/18 12:04 Dose: 750 mg Metoprolol Tartrate (Lopressor) 25 mg PO BID [facility] Last Admin: 01/13/18 08:01 Dose: 25 mg Morphine Sulfate (Morphine Inj) 2 mg IV.PUSH Q4H PRN PRN Reason: PAIN 6-10 Multivitamins/Minerals (Theragran-M) 1 tab PO DAILY [facility] Last Admin: 01/13/18 08:01 Dose: 1 tab Ondansetron HCl (Zofran Inj) 4 mg IV.PUSH Q6H PRN PRN Reason: NAUSEA OR VOMITING Senna/Docusate Sodium (Nohelia-Colace) 1 tab PO BID [facility] Last Admin: 01/13/18 08:01 Dose: 1 tab Sennosides (Senokot) 17.2 mg PO Q12H PRN PRN Reason: Moderate Constipation Vitamin D (Vitamin D3) 2,000 unit PO DAILY [facility] Last Admin: 01/13/18 08:01 Dose: 2,000 unit Allergies Allergy/AdvReac Type Severity Reaction Status Date / Time No Known Allergies Allergy Verified 01/11/18 21:21 Physical Exam Vital signs: Vital Signs 01/12/18 13:00 01/12/18 14:00 01/12/18 15:00 Temperature Pulse Rate 84 78 84 Respiratory Rate Blood Pressure Pulse Oximetry 01/12/18 16:00 01/12/18 17:00 01/12/18 17:27 Temperature 98.3 F Pulse Rate 73 73 74 Respiratory Rate 18 Blood Pressure 118/69 Pulse Oximetry 98 01/12/18 19:00 01/12/18 20:00 01/12/18 21:00 Temperature 98.7 F Pulse Rate 90 68 63 Respiratory Rate 17 Blood Pressure 102/56 L Pulse Oximetry 96 01/12/18 22:00 01/12/18 23:00 01/13/18 00:00 Temperature 98.9 F Pulse Rate 65 63 66 Respiratory Rate 17 Blood Pressure 99/57 L Pulse Oximetry 92 L 01/13/18 01:00 01/13/18 02:00 01/13/18 03:00 Temperature Pulse Rate 65 83 86 Respiratory Rate Blood Pressure Pulse Oximetry 01/13/18 04:00 01/13/18 05:00 01/13/18 07:00 Temperature 97.9 F Pulse Rate 84 92 H 90 Respiratory Rate 17 Blood Pressure 100/56 L Pulse Oximetry 96 01/13/18 08:00 01/13/18 09:00 01/13/18 10:00 Temperature 98.6 F Pulse Rate 72 92 H 67 Respiratory Rate 20 Blood Pressure 102/66 Pulse Oximetry 99 01/13/18 10:46 01/13/18 11:00 01/13/18 11:44 Temperature 97.9 F Pulse Rate 72 67 Respiratory Rate 20 Blood Pressure 103/67 Pulse Oximetry 100 96 01/13/18 12:00 Temperature Pulse Rate 70 Respiratory Rate Blood Pressure Pulse Oximetry Intake & Output 01/12/18 01/13/18 01/13/18 18:59 06:59 18:59 Intake Total 900 / 900 270 / 270 Output Total 1200 / 1200 950 / 950 Balance -300 / -300 -680 / -680 Weight 73.5 kg Intake: Oral 900 / 900 270 / 270 Output: Urine 1200 / 1200 950 / 950 Other: Date of Last Bowel Movement 01/11/18 01/11/18 # Bowel Movements 1 Narrative: GENERAL: Alert, NAD. SKIN: Warm and dry. HEAD: Normocephalic. EYES: No scleral icterus. No injection or drainage. NECK: Supple, trachea midline. No JVD or lymphadenopathy. CARDIOVASCULAR: Regular rate and rhythm without murmurs, gallops, or rubs. RESPIRATORY: Moderate air entry. No accessory muscle use. Bibasilar mild crackles. GASTROINTESTINAL: Abdomen soft, non-tender, nondistended. MUSCULOSKELETAL: No cyanosis. Lower ext edema 1+. BACK: Nontender without obvious deformity. No CVA tenderness. Results 01/13/18 10:14 01/13/18 10:14 Cardiac Enzymes 01/11/18 01/11/18 01/12/18 Range/Units 21:28 21:28 03:12 AST 26 20 (15-37) U/L Troponin I 0.64 H* 0.63 H* (0.02-0.05) ng/mL B-Natriuretic Peptide 532 H (0-100) pg/mL 01/12/18 Range/Units 11:02 AST (15-37) U/L Troponin I 0.56 H (0.02-0.05) ng/mL B-Natriuretic Peptide (0-100) pg/mL Coagulation 01/11/18 Range/Units 21:28 B-Natriuretic Peptide 532 H (0-100) pg/mL CBC 01/11/18 01/12/18 01/13/18 Range/Units 21:28 03:12 10:14 WBC 10.4 10.1 10.4 (4.0-11.0) th/mm3 RBC 3.84 L 3.55 L 3.60 L (4.50-5.90) mil/mm3 Hgb 10.7 L 10.0 L 10.3 L (13.0-17.0) gm/dL Hct 33.4 L 30.1 L 31.2 L (39.0-51.0) % Plt Count 234 D 225 260 (150-450) th/mm3 Neut # (Auto) 9.0 H 8.4 H 8.4 H (1.8-7.7) th/mm3 Lymph # (Auto) 0.5 L 0.5 L 0.6 L (1.0-4.8) th/mm3 [place] # (Auto) 0.7 0.8 0.9 (0.0-0.9) th/mm3 Eos # (Auto) 0.2 0.3 0.3 (0.0-0.4) th/mm3 Baso # (Auto) 0.0 0.0 0.1 (0.0-0.2) th/mm3 Comprehensive Metabolic Panel 01/11/18 01/12/18 01/13/18 Range/Units 21:28 03:12 10:14 Sodium 138 138 138 (136-145) meq/L Potassium 4.3 3.7 4.3 (3.5-5.1) meq/L Chloride 104 104 101 (98-107) meq/L Carbon Dioxide 29.4 28.1 32.6 H (21.0-32.0) meq/L BUN 21 H 22 H 23 H (7-18) mg/dL Creatinine 1.18 1.22 1.43 H (0.60-1.30) mg/dL Calcium 8.2 L 8.3 L 8.6 (8.5-10.1) mg/dL AST 26 20 (15-37) U/L ALT 19 17 (12-78) U/L Alkaline Phosphatase 72 67 (45-117) U/L Total Protein 6.1 L 5.8 L (6.4-8.2) g/dL Albumin 2.4 L 2.3 L (3.4-5.0) g/dL Intake and Output 01/12/18 01/13/18 01/13/18 22:59 06:59 14:59 Intake Total 900 / 900 270 / 270 Output Total 1200 / 1200 950 / 950 Balance -300 / -300 -680 / -680 Intake: Oral 900 / 900 270 / 270 Output: Urine 1200 / 1200 950 / 950 Other: Date of Last Bowel Movement 01/11/18 01/11/18 01/11/18 # Bowel Movements 1 Weight 73.5 kg - Imaging and Cardiology Imaging: Impressions Chest X-Ray 01/11/18 21:18 CONCLUSION: Worsening consolidation and pleural effusions at both bases, left worse than right. Chest X-Ray 01/13/18 00:00 CONCLUSION: Slight interval worsening in aeration Assessment and Plan - Assessment (1) Ischemic cardiomyopathy Code(s): I25.5 - Ischemic cardiomyopathy Status: Acute (2) Systolic heart failure Code(s): I50.20 - Unspecified systolic (congestive) heart failure Status: Chronic (3) S/P AVR Code(s): Z95.2 - Presence of prosthetic heart valve Status: Acute (4) S/P mitral valve repair Code(s): Z98.890 - Other specified postprocedural states Status: Acute (5) S/P CABG x 3 Code(s): Z95.1 - Presence of aortocoronary bypass graft Status: Acute (6) SHARMILA (acute kidney injury) Code(s): N17.9 - Acute kidney failure, unspecified Status: Acute (7) Atrial fibrillation with RVR Code(s): I48.91 - Unspecified atrial fibrillation Status: Acute (8) Hypoxia Code(s): R09.02 - Hypoxemia Status: Acute (9) Elevated troponin Code(s): R74.8 - Abnormal levels of other serum enzymes Status: Acute - Plan 1) Elevated troponins s/p CABGx3 Most likely type 2 due to CHF 2) Valvulopathies s/p AVR with 23mm Medtronic Mosaic valve s/p mitral valve annuloplasty with 28mm ring 3) Afib with RVR Rates better controlled 4) Acute heart failure Most likely due to dietary salt intake Discussed with patient and his daughter about weighing him daily, and if increasing then too much salt or water Continue diuresis
--- NOTE | 2018-01-13 13:10 | P.PN ---
Subjective Interval history: For acute on chronic congestive heart failure, recent CABG/AVR/MVR, atrial fibrillation. Patient is sitting in his chair. Currently on nasal cannula. Denies any chest pain, shortness of breath, fever or chills. Daughter is at bedside and reports that patient is feeling very lethargic today. Physical Exam Vital signs: Vital Signs 01/12/18 14:00 01/12/18 15:00 01/12/18 16:00 Temperature 98.3 F Pulse Rate 78 84 73 Respiratory Rate 18 Blood Pressure 118/69 Pulse Oximetry 98 01/12/18 17:00 01/12/18 17:27 01/12/18 19:00 Temperature Pulse Rate 73 74 90 Respiratory Rate Blood Pressure Pulse Oximetry 01/12/18 20:00 01/12/18 21:00 01/12/18 22:00 Temperature 98.7 F Pulse Rate 68 63 65 Respiratory Rate 17 Blood Pressure 102/56 L Pulse Oximetry 96 01/12/18 23:00 01/13/18 00:00 01/13/18 01:00 Temperature 98.9 F Pulse Rate 63 66 65 Respiratory Rate 17 Blood Pressure 99/57 L Pulse Oximetry 92 L 01/13/18 02:00 01/13/18 03:00 01/13/18 04:00 Temperature 97.9 F Pulse Rate 83 86 84 Respiratory Rate 17 Blood Pressure 100/56 L Pulse Oximetry 96 01/13/18 05:00 01/13/18 07:00 01/13/18 08:00 Temperature 98.6 F Pulse Rate 92 H 90 72 Respiratory Rate 20 Blood Pressure 102/66 Pulse Oximetry 99 01/13/18 09:00 01/13/18 10:00 01/13/18 10:46 Temperature Pulse Rate 92 H 67 Respiratory Rate Blood Pressure Pulse Oximetry 100 01/13/18 11:00 01/13/18 11:44 01/13/18 12:00 Temperature 97.9 F Pulse Rate 72 67 70 Respiratory Rate 20 Blood Pressure 103/67 Pulse Oximetry 96 Intake & Output 01/12/18 01/13/18 01/13/18 18:59 06:59 18:59 Intake Total 900 / 900 270 / 270 Output Total 1200 / 1200 950 / 950 Balance -300 / -300 -680 / -680 Weight 73.5 kg Intake: Oral 900 / 900 270 / 270 Output: Urine 1200 / 1200 950 / 950 Other: Date of Last Bowel Movement 01/11/18 01/11/18 # Bowel Movements 1 Narrative: GENERAL: Alert, NAD. SKIN: Warm and dry. HEAD: Normocephalic. EYES: No scleral icterus. No injection or drainage. NECK: Supple, trachea midline. No JVD or lymphadenopathy. CARDIOVASCULAR: Regular rate and rhythm without murmurs, gallops, or rubs. RESPIRATORY: Moderate air entry. No accessory muscle use. Bibasilar mild crackles. GASTROINTESTINAL: Abdomen soft, non-tender, nondistended. MUSCULOSKELETAL: No cyanosis. Lower ext edema 1+. BACK: Nontender without obvious deformity. No CVA tenderness. Results - Labs CBC & Chem 7: 01/13/18 10:14 01/13/18 10:14 Laboratory Results - last 24 hr 01/13/18 01/13/18 01/13/18 10:14 10:14 10:49 WBC 10.4 RBC 3.60 L Hgb 10.3 L Hct 31.2 L MCV 86.7 MCH 28.6 MCHC 33.0 RDW 16.9 Plt Count 260 MPV 8.1 Neut % (Auto) 81.3 H Lymph % (Auto) 6.2 L [place] % (Auto) 9.1 H Eos % (Auto) 2.8 Baso % (Auto) 0.6 Neut # (Auto) 8.4 H Lymph # (Auto) 0.6 L [place] # (Auto) 0.9 Eos # (Auto) 0.3 Baso # (Auto) 0.1 WBC Differential . Differential Comment Auto diff final Sodium 138 Potassium 4.3 Chloride 101 Carbon Dioxide 32.6 H Anion Gap 4 L BUN 23 H Creatinine 1.43 H Estimated GFR 48 L Random Glucose 125 H Calcium 8.6 Blood Type O Positive Blood Type Recheck Not needed Antibody Screen Negative - Imaging Impressions Chest X-Ray 01/13/18 00:00 CONCLUSION: Slight interval worsening in aeration - Procedures None. Assessment and Plan - Assessment (1) CHF (congestive heart failure) Code(s): I50.9 - Heart failure, unspecified Status: Acute (2) Hypoxia Code(s): R09.02 - Hypoxemia Status: Acute (3) Elevated troponin Code(s): R74.8 - Abnormal levels of other serum enzymes Status: Acute (4) Afib Code(s): I48.91 - Unspecified atrial fibrillation Status: Acute (5) Decubitus skin ulcer Code(s): L89.90 - Pressure ulcer of unspecified site, unspecified stage Status : Acute (6) S/P AVR Code(s): Z95.2 - Presence of prosthetic heart valve Status: Acute (7) S/P mitral valve repair Code(s): Z98.890 - Other specified postprocedural states Status: Acute (8) S/P CABG x 3 Code(s): Z95.1 - Presence of aortocoronary bypass graft Status: Acute - Plan This is a 77-year-old male with a PMH of HTN, CHF (TIEN 12/25/17 w/ EF 45-50%), s/ p CABG/AVR/MVR and A-fib on Eliquis who was sent to the ER from [facility] for c/o SOB and hypoxia. Pt w/ recent admit 12/23-01/09/18 for NSTEMI, s/p Cath w/ multivessel disease, Echo 12/23 w/ severe /MR, TIEN 12/25/17 w/ EF 45-50% , s/p CABG, AVR and MVR by Dr. Valera on 12/30/17, ultimately discharged to Rehab after prolonged hospitalization. Per EMS, O2 sat 80's. On arrival, BP 136/80, HR 92, O2 sat 96% on RA, Afebrile. Chest x-ray shows worsening consolidation and pleural effusions at both lung bases, left worse than right. Acute on chronic congestive heart failure with preserved ejection fraction Acute hypoxic respiratory failure due to congestive heart failure TIEN on 12/25/2017 shows ejection fraction 45-50%. Patient is status post CABG/ AVR/MVR. Continue Lasix 20 mg IV every 12 hours. Cardiology and cardiothoracic surgery consulted. Supplemental oxygen to keep O2 saturation around 90%. Mild elevation in troponin is likely due to recent CABG. BNP 532. Continue amiodarone 200 mg p.o. every 12 hours. Continue aspirin, atorvastatin Atrovent nebulizer treatment as needed. Atrial fibrillation Continue diltiazem 240 mg p.o. daily. Continue metoprolol tartrate 25 mg p.o. twice daily. Continue aspirin as well as apixaban 5 mg p.o. twice daily Acute kidney injury Creatinine on admission was 1.18. Currently 1.43 today. Probably due to diuretics use. However, chest x-ray shows little bit more pulmonary edema. Patient may need higher doses of Lasix. Full code. Apixaban.
--- NOTE | 2018-01-13 14:59 | P.PNWCN ---
Wound Care Nurse Consult Description: Received wound VAC management consult/ pressure ulcer for chest/decubitus Communicated with: RN Susan CPCU, and Doctor Monica Kelsey Recommendation: 1. Please cleanse wound to the R side of the coccyx with normal saline or wound cleanser and pat dry. 2. Apply Cavilon skin barrier film to periwound , then apply optifoam gentle sacral dressing over wound. Change every 3 to 5 days or as needed if saturated or dislodged. 3. please encourage and assist patient to turn and reposition self in bed every 2 hours and PRN for comfort and offloading of pressure from carlos prominences. 4. Please obtain alternating pressure pump for Dilma protevo bed and attach to mattress. 5. Limit layers of under patient, Do not use thick cotton pads under patient. Use ultrasorb pad for moisture management. Wound/Pressure Injury - Wound Right side of the coccyx Wound Staging: Stage II Wound Type: Pressure Injury Is This a Chronic Wound: No Requested from Provider a Wound Care Consult: Yes (Wound care saw patient today) Length (cm): 1 Width (cm): 1 Depth (cm): 0.1 (~<0.1cm ) Wound Bed Appearance: [place] Wound Bed Appearance: 100% pink, partial thickness Surrounding Tissue Appearance: Blanched/Dull, [place] Surrounding Tissue Temperature: Cool Drainage Amount: None Drainage Odor: No Odor Dressing Status: Changed Cleansing Solution: Saline Cover Dressing: Bordered gauze Wound Dressing Change Date: 01/13/18 Wound Margin Description: Wound margins are well defined and open - Additional Information Patient seen on CPCU for wound Vac management/ pressure ulcer for chest/ decubitus. Patient is observed up in chair upon fiction and nonfiction prose writer's arrival. Patient is noted with incision to chest that is visible, open to air, well approximated,dry ,and intact with glue. Patient stood with assistance of fiction and nonfiction prose writer and walker for assessment of buttock area. Removed adhesive foam dressing noted on the sacral/ buttock area to reveal, small partial thickness wound to the R side of the coccyx area. Wound is 100% pink and appear to have a pressure etiology. Wound is a stage II pressure injury. Periwound is unremarkable, pink and blanchable. Patient is very carlos. Cleansed wound with normal saline and patted dry. Applied Cavilon skin barrier film to periwound and then covered wound with bordered gauze. Full wound measurements, description and wound care recommendations are noted above. Patient is able to transfer with minimal assist back to bed and has good bed mobility.Patient is able to position himself off of bottom.
[2018-01-14] MEDS: Budesonide-Formoterol 80/4.5 MCG 6.9 GM Inhaler INH SCH ×2 (08:59→09:56)
[2018-01-14] MEDS: Senna/Docusate Sodium 8.6/50 MG Tablet PO SCH ×2 (09:49→20:30)
[2018-01-14] MEDS: Multivitamin/Minerals Therapeutic Tablet PO SCH (09:49)
[2018-01-14] MEDS: Duloxetine 60 MG DR Capsule PO SCH (09:49)
[2018-01-14] MEDS: Amiodarone 200 MG Tablet PO SCH ×2 (09:49→20:30)
[2018-01-14] MEDS: dilTIAZem CD 240 MG Capsule PO SCH (09:49)
[2018-01-14] MEDS: Metoprolol Tartrate 25 MG Tablet PO SCH (13:30)
[2018-01-14] MEDS: levoFLOXacin 750 MG Tablet PO SCH (13:30)
--- NOTE | 2018-01-14 14:34 | P.PN ---
Subjective Interval history: Follow up for acute on chronic congestive heart failure, recent CABG/AVR/MVR, atrial fibrillation. Patient is currently doing well. Denies any chest pain, SOB , fever, chills. He is on 2L O2 via NC. Denies feeling lethargic. Physical Exam Vital signs: Vital Signs 01/13/18 15:00 01/13/18 15:28 01/13/18 16:00 Temperature 98.2 F Pulse Rate 59 L 61 65 Respiratory Rate 18 Blood Pressure 90/54 L Pulse Oximetry 95 01/13/18 17:00 01/13/18 18:00 01/13/18 19:00 Temperature Pulse Rate 72 61 63 Respiratory Rate Blood Pressure Pulse Oximetry 01/13/18 20:00 01/13/18 21:00 01/13/18 22:00 Temperature 97.8 F Pulse Rate 63 76 75 Respiratory Rate 17 Blood Pressure 90/50 L Pulse Oximetry 99 01/13/18 22:13 01/13/18 23:00 01/14/18 00:00 Temperature 98.0 F Pulse Rate 73 73 Respiratory Rate 17 17 Blood Pressure 111/58 L Pulse Oximetry 97 01/14/18 01:00 01/14/18 02:00 01/14/18 03:00 Temperature Pulse Rate 73 68 70 Respiratory Rate Blood Pressure Pulse Oximetry 01/14/18 03:20 01/14/18 05:00 01/14/18 05:56 Temperature 97.9 F Pulse Rate 70 87 99 H Respiratory Rate 17 Blood Pressure 103/56 L Pulse Oximetry 94 L 01/14/18 07:25 01/14/18 08:24 01/14/18 09:25 Temperature 98.2 F Pulse Rate 76 82 120 H Respiratory Rate 20 Blood Pressure 103/67 Pulse Oximetry 94 L 01/14/18 09:38 01/14/18 09:39 01/14/18 10:00 Temperature Pulse Rate 120 H 87 Respiratory Rate 20 Blood Pressure Pulse Oximetry 97 01/14/18 11:33 01/14/18 12:00 01/14/18 12:07 Temperature 98.1 F Pulse Rate 97 H 78 122 H Respiratory Rate 18 Blood Pressure 108/65 Pulse Oximetry 01/14/18 12:18 01/14/18 13:01 01/14/18 14:03 Temperature Pulse Rate 75 73 Respiratory Rate 16 Blood Pressure Pulse Oximetry Intake & Output 01/13/18 01/14/18 01/14/18 18:59 06:59 18:59 Intake Total 960 / 960 120 / 120 Output Total 800 / 800 250 / 250 Balance 160 / 160 -130 / -130 Weight 73 kg Intake: Oral 960 / 960 120 / 120 Output: Urine 800 / 800 250 / 250 Other: Date of Last Bowel Movement 01/12/18 01/11/18 01/13/18 # Bowel Movements 0 Narrative: GENERAL: Alert, NAD. SKIN: Warm and dry. HEAD: Normocephalic. EYES: No scleral icterus. No injection or drainage. NECK: Supple, trachea midline. No JVD or lymphadenopathy. CARDIOVASCULAR: Regular rate and rhythm without murmurs, gallops, or rubs. RESPIRATORY: Moderate air entry. No accessory muscle use. Bibasilar mild crackles. GASTROINTESTINAL: Abdomen soft, non-tender, nondistended. MUSCULOSKELETAL: No cyanosis. Lower ext edema trace amount. BACK: Nontender without obvious deformity. No CVA tenderness. Results - Labs CBC & Chem 7: 01/13/18 10:14 01/13/18 10:14 - Procedures None. Assessment and Plan - Assessment (1) CHF (congestive heart failure) Code(s): I50.9 - Heart failure, unspecified Status: Acute (2) Hypoxia Code(s): R09.02 - Hypoxemia Status: Acute (3) Elevated troponin Code(s): R74.8 - Abnormal levels of other serum enzymes Status: Acute (4) Afib Code(s): I48.91 - Unspecified atrial fibrillation Status: Acute (5) Decubitus skin ulcer Code(s): L89.90 - Pressure ulcer of unspecified site, unspecified stage Status : Acute (6) S/P AVR Code(s): Z95.2 - Presence of prosthetic heart valve Status: Acute (7) S/P mitral valve repair Code(s): Z98.890 - Other specified postprocedural states Status: Acute (8) S/P CABG x 3 Code(s): Z95.1 - Presence of aortocoronary bypass graft Status: Acute - Plan This is a 77-year-old male with a PMH of HTN, CHF (TIEN 12/25/17 w/ EF 45-50%), s/ p CABG/AVR/MVR and A-fib on Eliquis who was sent to the ER from [facility] for c/o SOB and hypoxia. Pt w/ recent admit 12/23-01/09/18 for NSTEMI, s/p Cath w/ multivessel disease, Echo 12/23 w/ severe /MR, TIEN 12/25/17 w/ EF 45-50% , s/p CABG, AVR and MVR by Dr. Valera on 12/30/17, ultimately discharged to Rehab after prolonged hospitalization. Per EMS, O2 sat 80's. On arrival, BP 136/80, HR 92, O2 sat 96% on RA, Afebrile. Chest x-ray shows worsening consolidation and pleural effusions at both lung bases, left worse than right. Acute on chronic congestive heart failure with preserved ejection fraction Acute hypoxic respiratory failure due to congestive heart failure TIEN on 12/25/2017 shows ejection fraction 45-50%. Patient is status post CABG/ AVR/MVR. Continue Lasix 20 mg IV every 12 hours. Cardiology and cardiothoracic surgery consulted. Supplemental oxygen to keep O2 saturation around 90%. Mild elevation in troponin is likely due to recent CABG. BNP 532. Continue amiodarone 200 mg p.o. every 12 hours. Continue aspirin, atorvastatin Atrovent nebulizer treatment as needed. Atrial fibrillation Continue diltiazem 240 mg p.o. daily. Continue metoprolol tartrate 25 mg p.o. twice daily. Continue aspirin as well as apixaban 5 mg p.o. twice daily Acute kidney injury Creatinine on admission was 1.18. Currently 1.43 as of 01/13/2018. Probably due to diuretics use. Will switch IV lasix to Torsemide PO. Full code. Apixaban. Discharge plan: Patient can go back to [facility] when cleared by CV surgery.
--- NOTE | 2018-01-14 15:17 | P.PNCV ---
- Note Subjective/Hospital Course: 77-year-old known to our service / just recently discharged to [facility] /01/10/18 following open heart surgery procedure on 12/30/2017 with a 23 mm [employer] Mosaic tissue valve, mitral valve repair and CABG x 3 with a HARVEY to LAD, SVG to OM2 and SVG to the ramus. The patient has a known cardiomyopathy with an EF of 45%. He presented back to the emergency room yesterday, which was the Saturday after Thanksgiving. His daughter did bring in a [employer] Thanksgiving dinner. His presentation to the emergency room was for progressive shortness of breath and fatigue, and lower ext edema . Pt was on room air at discharge, was still in Afib / rate controlled / on amiodarone, cardizem and eliquis . HR 128 on admission in afib PAST MEDICAL HISTORY: Includes aortic stenosis, status post AVR, mitral valve repair, CABG as above, ischemic cardiomyopathy and atrial fibrillation. 01/13 CXR shows some bilateral opacities/ L>R exp wheeze, lower ext edema agree with diuresis and antibiotics will need to start tapering amiodarone / BB added/ pt tolerating feels better today, on nasal cannula 100% on 2 liters surgical incision intact and well approximated 01/14/18 on 2 liter nasal cannula / remains in afib, rate improved, pt feels he is feeling a little better, BP on lower side need to space out meds eval for transfer back to rehab in am Objective: Vital Signs - 24 hr 01/13/18 15:28 01/13/18 16:00 01/13/18 17:00 Temperature 98.2 F Pulse Rate 61 65 72 Respiratory Rate 18 Blood Pressure 90/54 L Pulse Oximetry 95 01/13/18 18:00 01/13/18 19:00 01/13/18 20:00 Temperature 97.8 F Pulse Rate 61 63 63 Respiratory Rate 17 Blood Pressure 90/50 L Pulse Oximetry 99 01/13/18 21:00 01/13/18 22:00 01/13/18 22:13 Temperature Pulse Rate 76 75 Respiratory Rate 17 Blood Pressure Pulse Oximetry 01/13/18 23:00 01/14/18 00:00 01/14/18 01:00 Temperature 98.0 F Pulse Rate 73 73 73 Respiratory Rate 17 Blood Pressure 111/58 L Pulse Oximetry 97 01/14/18 02:00 01/14/18 03:00 01/14/18 03:20 Temperature 97.9 F Pulse Rate 68 70 70 Respiratory Rate 17 Blood Pressure 103/56 L Pulse Oximetry 94 L 01/14/18 05:00 01/14/18 05:56 01/14/18 07:25 Temperature Pulse Rate 87 99 H 76 Respiratory Rate Blood Pressure Pulse Oximetry 01/14/18 08:24 01/14/18 09:25 01/14/18 09:38 Temperature 98.2 F Pulse Rate 82 120 H 120 H Respiratory Rate 20 20 Blood Pressure 103/67 Pulse Oximetry 94 L 01/14/18 09:39 01/14/18 10:00 01/14/18 11:33 Temperature Pulse Rate 87 97 H Respiratory Rate Blood Pressure Pulse Oximetry 97 01/14/18 12:00 01/14/18 12:07 01/14/18 12:18 Temperature 98.1 F Pulse Rate 78 122 H Respiratory Rate 18 16 Blood Pressure 108/65 Pulse Oximetry 01/14/18 13:01 01/14/18 14:03 Temperature Pulse Rate 75 73 Respiratory Rate Blood Pressure Pulse Oximetry GENERAL: A&O x 3 SKIN: Warm and dry. sternal incision intact and well approximated HEAD: Normocephalic. EYES: No scleral icterus. No injection or drainage. NECK: Supple, trachea midline. No JVD or lymphadenopathy. CARDIOVASCULAR: irregular rate and rhythm without murmurs, gallops, or rubs. RESPIRATORY: Breath sounds equal bilaterally. No accessory muscle use. GASTROINTESTINAL: Abdomen soft, non-tender, nondistended. MUSCULOSKELETAL: No cyanosis, or edema. BACK: Nontender without obvious deformity. No CVA tenderness. Result Diagrams: 01/13/18 10:14 01/13/18 10:14 - Plan (5) Systolic heart failure Plan: on diuretics (10) S/P CABG x 3 Plan: ASA, BB , statin OOB ambulate wean o2 PT / (11) Atrial fibrillation Plan: taper dose amiodarone , on cardizem and BB eliquis wean 02 as tolerated continue BB, cardizem and taper dose amiodarone complete course of antibiotic eval for dc back to rehab in am
[2018-01-14] MEDS ORDERED: Sodium Chlor 0.9% Inj 250 ML IV.SIG SCH (16:00)
--- NOTE | 2018-01-14 18:15 | P.PNCA ---
Subjective Interval history: No events overnight Blood pressure mildly low Medications and Allergies Active Medications: Active Medications Acetaminophen (Tylenol) 650 mg PO Q4H PRN PRN Reason: Temp > 100.4 Hydrocodone Bitart/Acetaminophen ([place] 5/325) 1 tab PO Q4H PRN PRN Reason: Pain Scale 1 To 5 Last Admin: 01/13/18 20:24 Dose: 1 tab Al Hydroxide/Mg Hydroxide (Milk Of Magnesia Liq) 30 ml PO Q12H PRN PRN Reason: Mild Constipation Amiodarone HCl (Cordarone) 200 mg PO Q12HR [facility] Last Admin: 01/14/18 09:49 Dose: 200 mg Apixaban (Eliquis) 5 mg PO BID [facility] Last Admin: 01/14/18 09:49 Dose: 5 mg Aspirin (Ecotrin) 81 mg PO DAILY [facility] Last Admin: 01/14/18 09:49 Dose: 81 mg Atorvastatin Calcium (Lipitor) 40 mg PO HS [facility] Last Admin: 01/13/18 20:22 Dose: 40 mg Bisacodyl (Dulcolax Supp) 10 mg RECTAL DAILY PRN PRN Reason: SEVERE CONSITIPATION Budesonide/Formoterol Fumarate (Symbicort 80/4.5 Mcg Inh) 1 puff INH BID [facility] Last Admin: 01/14/18 09:56 Dose: 1 puff Diltiazem HCl (Cardizem Cd 24hr) 240 mg PO DAILY [facility] Last Admin: 01/14/18 09:49 Dose: 240 mg Duloxetine HCl (Cymbalta) 60 mg PO DAILY [facility] Last Admin: 01/14/18 09:49 Dose: 60 mg Ipratropium [place] (Atrovent Neb) 1 mg NEB Q4HR NEB PRN PRN Reason: SOB/WHEEZING Last Admin: 01/14/18 17:50 Dose: 1 mg Lactulose (Lactulose Liq) 30 ml PO DAILY PRN PRN Reason: SEVERE CONSITIPATION Levalbuterol HCl (Xopenex Neb) 1 mg NEB Q4HR NEB PRN PRN Reason: SOB/WHEEZING Levofloxacin (Levaquin) 750 mg PO Q24H [facility] Stop: 01/18/18 11:59 Last Admin: 01/14/18 13:30 Dose: 750 mg Metoprolol Tartrate (Lopressor) 12.5 mg PO BID [facility] Morphine Sulfate (Morphine Inj) 2 mg IV.PUSH Q4H PRN PRN Reason: PAIN 6-10 Multivitamins/Minerals (Theragran-M) 1 tab PO DAILY [facility] Last Admin: 01/14/18 09:49 Dose: 1 tab Ondansetron HCl (Zofran Inj) 4 mg IV.PUSH Q6H PRN PRN Reason: NAUSEA OR VOMITING Senna/Docusate Sodium (Nohelia-Colace) 1 tab PO BID [facility] Last Admin: 01/14/18 09:49 Dose: 1 tab Sennosides (Senokot) 17.2 mg PO Q12H PRN PRN Reason: Moderate Constipation Torsemide (Demadex) 10 mg PO BID@0900,1800 [facility] Vitamin D (Vitamin D3) 2,000 unit PO DAILY [facility] Last Admin: 01/14/18 09:49 Dose: 2,000 unit Allergies Allergy/AdvReac Type Severity Reaction Status Date / Time No Known Allergies Allergy Verified 01/11/18 21:21 Physical Exam Vital signs: Vital Signs 01/13/18 19:00 01/13/18 20:00 01/13/18 21:00 Temperature 97.8 F Pulse Rate 63 63 76 Respiratory Rate 17 Blood Pressure 90/50 L Pulse Oximetry 99 01/13/18 22:00 01/13/18 22:13 01/13/18 23:00 Temperature Pulse Rate 75 73 Respiratory Rate 17 Blood Pressure Pulse Oximetry 01/14/18 00:00 01/14/18 01:00 01/14/18 02:00 Temperature 98.0 F Pulse Rate 73 73 68 Respiratory Rate 17 Blood Pressure 111/58 L Pulse Oximetry 97 01/14/18 03:00 01/14/18 03:20 01/14/18 05:00 Temperature 97.9 F Pulse Rate 70 70 87 Respiratory Rate 17 Blood Pressure 103/56 L Pulse Oximetry 94 L 01/14/18 05:56 01/14/18 07:25 01/14/18 08:24 Temperature 98.2 F Pulse Rate 99 H 76 82 Respiratory Rate 20 Blood Pressure 103/67 Pulse Oximetry 94 L 01/14/18 09:25 01/14/18 09:38 01/14/18 09:39 Temperature Pulse Rate 120 H 120 H Respiratory Rate 20 Blood Pressure Pulse Oximetry 97 01/14/18 10:00 01/14/18 11:33 01/14/18 12:00 Temperature 98.1 F Pulse Rate 87 97 H 78 Respiratory Rate 18 Blood Pressure 108/65 Pulse Oximetry 01/14/18 12:07 01/14/18 12:18 01/14/18 13:01 Temperature Pulse Rate 122 H 75 Respiratory Rate 16 Blood Pressure Pulse Oximetry 01/14/18 14:03 01/14/18 15:43 01/14/18 16:25 Temperature 98.5 F Pulse Rate 73 76 62 Respiratory Rate 18 Blood Pressure 92/55 L Pulse Oximetry 01/14/18 16:43 01/14/18 17:15 01/14/18 17:50 Temperature Pulse Rate 56 L 63 63 Respiratory Rate 14 Blood Pressure Pulse Oximetry Intake & Output 01/13/18 01/14/18 01/14/18 18:59 06:59 18:59 Intake Total 960 / 960 120 / 120 Output Total 800 / 800 250 / 250 Balance 160 / 160 -130 / -130 Weight 73 kg Intake: Oral 960 / 960 120 / 120 Output: Urine 800 / 800 250 / 250 Other: Date of Last Bowel Movement 01/12/18 01/11/18 01/13/18 # Bowel Movements 0 Narrative: GENERAL: Alert, NAD. SKIN: Warm and dry. HEAD: Normocephalic. EYES: No scleral icterus. No injection or drainage. NECK: Supple, trachea midline. No JVD or lymphadenopathy. CARDIOVASCULAR: Regular rate and rhythm without murmurs, gallops, or rubs. RESPIRATORY: Moderate air entry. No accessory muscle use. Bibasilar mild crackles. GASTROINTESTINAL: Abdomen soft, non-tender, nondistended. MUSCULOSKELETAL: No cyanosis. Lower ext edema trace amount. BACK: Nontender without obvious deformity. No CVA tenderness. Results 01/13/18 10:14 01/13/18 10:14 CBC 01/13/18 Range/Units 10:14 WBC 10.4 (4.0-11.0) th/mm3 RBC 3.60 L (4.50-5.90) mil/mm3 Hgb 10.3 L (13.0-17.0) gm/dL Hct 31.2 L (39.0-51.0) % Plt Count 260 (150-450) th/mm3 Neut # (Auto) 8.4 H (1.8-7.7) th/mm3 Lymph # (Auto) 0.6 L (1.0-4.8) th/mm3 Breathitt # (Auto) 0.9 (0.0-0.9) th/mm3 Eos # (Auto) 0.3 (0.0-0.4) th/mm3 Baso # (Auto) 0.1 (0.0-0.2) th/mm3 Comprehensive Metabolic Panel 01/13/18 Range/Units 10:14 Sodium 138 (136-145) meq/L Potassium 4.3 (3.5-5.1) meq/L Chloride 101 (98-107) meq/L Carbon Dioxide 32.6 H (21.0-32.0) meq/L BUN 23 H (7-18) mg/dL Creatinine 1.43 H (0.60-1.30) mg/dL Calcium 8.6 (8.5-10.1) mg/dL Intake and Output 01/14/18 01/14/18 01/14/18 06:59 14:59 22:59 Intake Total 120 / 120 Output Total 250 / 250 Balance -130 / -130 Intake: Oral 120 / 120 Output: Urine 250 / 250 Other: Date of Last Bowel Movement 01/11/18 01/13/18 Weight 73 kg - Imaging and Cardiology Imaging: Impressions Chest X-Ray 01/13/18 00:00 CONCLUSION: Slight interval worsening in aeration Assessment and Plan - Assessment (1) Ischemic cardiomyopathy Code(s): I25.5 - Ischemic cardiomyopathy Status: Acute (2) Systolic heart failure Code(s): I50.20 - Unspecified systolic (congestive) heart failure Status: Chronic (3) S/P AVR Code(s): Z95.2 - Presence of prosthetic heart valve Status: Acute (4) S/P mitral valve repair Code(s): Z98.890 - Other specified postprocedural states Status: Acute (5) S/P CABG x 3 Code(s): Z95.1 - Presence of aortocoronary bypass graft Status: Acute (6) SHARMILA (acute kidney injury) Code(s): N17.9 - Acute kidney failure, unspecified Status: Acute (7) Atrial fibrillation with RVR Code(s): I48.91 - Unspecified atrial fibrillation Status: Acute (8) Hypoxia Code(s): R09.02 - Hypoxemia Status: Acute (9) Elevated troponin Code(s): R74.8 - Abnormal levels of other serum enzymes Status: Acute - Plan 1) Elevated troponins s/p CABGx3 Most likely type 2 due to CHF 2) Valvulopathies s/p AVR with 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
[2018-01-14] MEDS ORDERED: Sodium Chlor 0.9% Inj 250 ML IV.SIG PRN (20:00)
[2018-01-14] MEDS ORDERED: Metoprolol Tartrate 25 MG Tablet PO SCH (21:00)
[2018-01-15] MEDS ORDERED: Metoprolol Tartrate 25 MG Tablet PO SCH (08:30)
--- NOTE | 2018-01-15 08:46 | P.DS ---
Date of admission: 01/11/18 23:31 Primary care physician: No Primary Care Physician Attending physician on discharge: Hollis Kelsey Anticipated date of discharge: 01/15/18 Brief History from admission: This is a 77-year-old male with a PMH of HTN, CHF (TIEN 12/25/17 w/ EF 45-50%), s/ p CABG/AVR/MVR and A-fib on Eliquis who was sent to the ER from [facility] for c/o SOB and hypoxia. Pt poor historian, lethargic on exam, but able to answer few questions, history obtained from daughter at bedside. Pt w/ recent admit 12/23-01/09/18 for NSTEMI, s/p Cath w/ multivessel disease, Echo 12/23 w/ severe /MR, TIEN 12/25/17 w/ EF 45-50%, s/p CABG, AVR and MVR by Dr. Valera on 12/30/17, ultimately discharged to Rehab after prolonged hospitalization. Daughter states he had been doing well after chest tube removal w/ no c/o SOB, yesterday Daughter noted to be more SOB than baseline, especially w/ ambulation to the restroom. States he had PT today without difficulty, however later on pt w/ worsening c/o SOB. Daughter notes increased lower extremity edema. Per EMS, O2 sat 80's. On arrival, BP 136/80, HR 92, O2 sat 96% on RA, Afebrile. CBC essentially unremarkable. Chemistry is essentially unremarkable except for BUN 21, GFR 60. Troponin 0 0.64, BNP 532. CXR with worsening consolidation and pleural effusions at both bases, left worse than right. S/p Lasix in ER. Dr. Funes consulted by ER physician, no immediate surgical intervention at this time. Patient update on day of discharge: Patient is doing well. Sitting in his chair. No fever, chills. DS: Diagnosis - Discharge Diagnosis (1) CHF (congestive heart failure) Status: Acute (2) Hypoxia Status: Acute (3) Elevated troponin Status: Acute (4) Afib Status: Acute (5) Decubitus skin ulcer Status: Acute (6) S/P AVR Status: Acute (7) S/P mitral valve repair Status: Acute (8) S/P CABG x 3 Status: Acute DS: Medications - Discharge Medications Prescriptions: amiodarone 200 mg PO DAILY #36 tab hydrocodone-acetaminophen 1 tab PO Q4H PRN #12 tab PRN Reason: Pain 5-10 levofloxacin 750 mg PO Q24H #3 tab metoprolol tartrate 25 mg PO BID #60 tab torsemide 5 mg PO DAILY #30 tab DS: Summary Hospital Course: This is a 77-year-old male with a PMH of HTN, CHF (TIEN 12/25/17 w/ EF 45-50%), s/ p CABG/AVR/MVR and A-fib on Eliquis who was sent to the ER from [facility] for c/o SOB and hypoxia. Pt w/ recent admit 12/23-01/09/18 for NSTEMI, s/p Cath w/ multivessel disease, Echo 12/23 w/ severe /MR, TIEN 12/25/17 w/ EF 45-50% , s/p CABG, AVR and MVR by Dr. Valera on 12/30/17, ultimately discharged to Rehab after prolonged hospitalization. Per EMS, O2 sat 80's. On arrival, BP 136/80, HR 92, O2 sat 96% on RA, Afebrile. Chest x-ray shows worsening consolidation and pleural effusions at both lung bases, left worse than right. Acute on chronic congestive heart failure with preserved ejection fraction Acute hypoxic respiratory failure due to congestive heart failure TIEN on 12/25/2017 shows ejection fraction 45-50%. Patient is status post CABG/ AVR/MVR. Cardiology and cardiothoracic surgery consulted. -Due to low BP and no evidence of volume overload, we switched diuretics to Torsemide 5 mg Qday. This may need to be adjusted in 5-7 days. Supplemental oxygen to keep O2 saturation around 90%. Mild elevation in troponin is likely due to recent CABG. BNP 532. Continue amiodarone 200 mg p.o. every 12 hours for 3 days then 200mg Qday. Continue aspirin, atorvastatin Atrovent nebulizer treatment as needed. Atrial fibrillation Continue diltiazem 240 mg p.o. daily. Continue metoprolol tartrate 25 mg p.o. twice daily. Continue aspirin as well as apixaban 5 mg p.o. BID. Acute kidney injury Creatinine on admission was 1.18. Currently 1.43 as of 01/13/2018. Reduced diuretics to Torsemide 5mg Qday - adjust the dose based on patient's volume status. Full code. Apixaban. - Time Spent with Patient Total time spent providing and/or coordinating discharge services: Greater than 30 minutes Exam Vital signs: Vital Signs 01/14/18 09:25 01/14/18 09:38 01/14/18 09:39 Temperature Pulse Rate 120 H 120 H Respiratory Rate 20 Blood Pressure Pulse Oximetry 97 01/14/18 10:00 01/14/18 11:33 01/14/18 12:00 Temperature 98.1 F Pulse Rate 87 97 H 78 Respiratory Rate 18 Blood Pressure 108/65 Pulse Oximetry 01/14/18 12:07 01/14/18 12:18 01/14/18 13:01 Temperature Pulse Rate 122 H 75 Respiratory Rate 16 Blood Pressure Pulse Oximetry 01/14/18 14:03 01/14/18 15:43 01/14/18 16:25 Temperature 98.5 F Pulse Rate 73 76 62 Respiratory Rate 18 Blood Pressure 92/55 L Pulse Oximetry 01/14/18 16:43 01/14/18 17:15 01/14/18 17:50 Temperature Pulse Rate 56 L 63 63 Respiratory Rate 14 Blood Pressure Pulse Oximetry 01/14/18 18:21 01/14/18 19:00 01/14/18 20:00 Temperature 98.0 F Pulse Rate 96 H 76 68 Respiratory Rate 17 Blood Pressure 98/57 L Pulse Oximetry 98 01/14/18 21:00 01/14/18 22:00 01/14/18 23:00 Temperature Pulse Rate 90 85 59 L Respiratory Rate Blood Pressure Pulse Oximetry 01/15/18 00:00 01/15/18 01:00 01/15/18 02:00 Temperature 98.1 F Pulse Rate 97 H 72 72 Respiratory Rate 18 Blood Pressure 110/56 L Pulse Oximetry 96 01/15/18 03:00 01/15/18 03:43 01/15/18 05:00 Temperature 98.3 F Pulse Rate 93 H 93 H 72 Respiratory Rate 17 Blood Pressure 107/59 L Pulse Oximetry 92 L 01/15/18 05:23 01/15/18 07:29 01/15/18 08:01 Temperature 97.3 F L Pulse Rate 100 H 103 H 120 H Respiratory Rate 20 Blood Pressure 115/75 Pulse Oximetry 96 01/15/18 08:04 Temperature Pulse Rate 105 H Respiratory Rate 20 Blood Pressure Pulse Oximetry Intake & Output 01/14/18 01/15/18 01/15/18 18:59 06:59 18:59 Intake Total 1210 / 1210 240 / 240 Output Total 1250 / 1250 350 / 350 Balance -40 / -40 -110 / -110 Weight 75.5 kg Intake: IV 250 / 250 NS Inj 250 ML @ 500 mls/hr IV. 250 / 250 SIG ONCE MARICEL Rx#:[id number] Oral 960 / 960 240 / 240 Output: Urine 1250 / 1250 350 / 350 Other: Date of Last Bowel Movement 01/13/18 01/11/18 Narrative: GENERAL: Alert, NAD. SKIN: Warm and dry. HEAD: Normocephalic. EYES: No scleral icterus. No injection or drainage. NECK: Supple, trachea midline. No JVD or lymphadenopathy. CARDIOVASCULAR: Regular rate and rhythm without murmurs, gallops, or rubs. RESPIRATORY: Moderate air entry. No accessory muscle use. Bibasilar mild crackles. GASTROINTESTINAL: Abdomen soft, non-tender, nondistended. MUSCULOSKELETAL: No cyanosis. No lower ext edema. BACK: Nontender without obvious deformity. No CVA tenderness. Results Procedures completed during hospitalization: Echocardiogram Mildly dilated left ventricle. Mild concentric left ventricular hypertrophy. The left ventricular systolic function is mildly reduced with an estimated ejection fraction in the range of 45- 50%. A pacemaker wire is noted. The left atrial size is severely dilated. The right atrial size is severely dilated. There is moderate to severe tricuspid regurgitation. - Impressions ITS Impressions Chest X-Ray 01/13/18 00:00 CONCLUSION: Slight interval worsening in aeration Discharge Plan - Discharge Disposition Patient Disposition: 03 Discharge to SNF - Discharge Condition Condition: Good - Discharge Order Discharge Orders: Discharge Order (Routine); Ordered 01/15/18 Ordered By: Hollis Kelsey - Discharge Details Anticipated Discharge Date: 01/15/18 - Physicians Team Primary Care Provider: Primary Care Delmar,Sammie Attending Provider: Hollis Kelsey Other Providers: Dea Rowell MD ; Josh Valera MD
[2018-01-15] MEDS: Duloxetine 60 MG DR Capsule PO SCH (09:01)
[2018-01-15] MEDS: Budesonide-Formoterol 80/4.5 MCG 6.9 GM Inhaler INH SCH ×2 (09:03→09:06)
[2018-01-15] MEDS: Multivitamin/Minerals Therapeutic Tablet PO SCH (10:15)
[2018-01-15] MEDS: Senna/Docusate Sodium 8.6/50 MG Tablet PO SCH (10:15)
[2018-01-15] MEDS: Amiodarone 200 MG Tablet PO SCH (10:15)
[2018-01-15] MEDS: dilTIAZem CD 240 MG Capsule PO SCH (10:15)
[2018-01-15] MEDS: levoFLOXacin 750 MG Tablet PO SCH (12:32)
== END 2018-01-15 13:45 ==
LOC: NEPC 20:54 → NEDA 23:31 → HCPC 01-12 00:16
PROVIDERS: ADMIT Hospitalist; ATTEND Hospitalist

== ENCOUNTER 2018-01-18 12:04 | Observation (INO) ==
[2018-01-18 13:50] LABS: Baso # (Auto) 0.1 th/mm3 (0.0-0.2); Baso % (Auto) 0.7 % (0.0-2.0); Eos # (Auto) 0.1 th/mm3 (0.0-0.4); Eos % (Auto) 1.2 % (0.0-4.0); Hematocrit 29.2 % (39.0-51.0); Hemoglobin 9.4 gm/dL (13.0-17.0); Lymph # (Auto) 0.7 th/mm3 (1.0-4.8); Lymph % (Auto) 5.9 % (9.0-44.0); Mean Corpuscular HGB Conc 32.3 % (32.0-36.0); Mean Corpuscular Hemoglobin 27.4 pg (27.0-34.0); Mean Corpuscular Volume 84.9 fL (80.0-100.0); Mean Platelet Volume 8.5 fL (7.0-11.0); Mono # (Auto) 1.1 th/mm3 (0.0-0.9); Mono % (Auto) 9.7 % (0.0-8.0); Neut # (Auto) 9.7 th/mm3 (1.8-7.7); Neut % (Auto) 82.5 % (16.0-70.0); Platelet Count 231 th/mm3 (150-450); Red Blood Count 3.44 mil/mm3 (4.50-5.90); Red Cell Distribution Width 17.4 % (11.6-17.2); White Blood Count 11.7 th/mm3 (4.0-11.0)
[2018-01-18 14:16] LABS: Albumin 2.3 g/dL (3.4-5.0); Anion Gap 7 meq/L (5-15); Aspartate Aminotransferase 29 U/L (15-37); Blood Urea Nitrogen 19 mg/dL (7-18); Calcium 8.5 mg/dL (8.5-10.1); Chloride 103 meq/L (98-107); Glomerular Filtration Rate 56 mL/min (>89); Glucose,Random 78 mg/dL (74-106); Magnesium 1.8 mg/dL (1.5-2.5); Potassium 3.6 meq/L (3.5-5.1); Sodium 139 meq/L (136-145)
[2018-01-18 14:19] LABS: Alanine Aminotransferase 25 U/L (12-78); Alkaline Phosphatase 74 U/L (45-117); Total Protein 6.4 g/dL (6.4-8.2)
--- NOTE | 2018-01-18 14:35 | ED ---
HPI General Chief complaint: Medical Clearance Stated complaint: Cardiac Time Seen by Provider: 01/18/18 12:09 Source: patient and family Mode of arrival: EMS Limitations: other (Poor historian) History of Present Illness Onset (ago): day(s) (1) Location: upper extremity and lower extremity Severity: mild Quality: other (Jerking and shaking) Relieving factors: none Exacerbating factors: none Associated symptoms: Reports denies other symptoms (Except for postoperative chest pain) Treatments prior to arrival: Reports none Related Data Previous Rx's Medication Instructions Recorded apixaban [Eliquis] 5 mg PO BID tab 01/08/18 aspirin 81 mg PO DAILY tab 01/08/18 atorvastatin 40 mg PO HS tab 01/08/18 budesonide-formoterol [Symbicort] 1 puff INH BID g 01/08/18 cholecalciferol (vitamin D3) 2,000 unit PO DAILY tab 01/08/18 [Vitamin D3] diltiazem HCl 240 mg PO DAILY cap 01/08/18 docusate sodium [DOK] 100 mg PO BID cap 01/08/18 duloxetine 60 mg PO DAILY cap 01/08/18 gerajppi-wtvv-WC-calcium-mins 1 tab PO DAILY tab 01/08/18 [Thera M Plus (ferrous fumarat)] amiodarone 200 mg PO DAILY #36 tab 01/15/18 hydrocodone-acetaminophen 1 tab PO Q4H PRN #12 tab 01/15/18 levofloxacin 750 mg PO Q24H #3 tab 01/15/18 metoprolol tartrate 25 mg PO BID #60 tab 01/15/18 torsemide 5 mg PO DAILY #30 tab 01/15/18 Allergies Allergy/AdvReac Type Severity Reaction Status Date / Time No Known Allergies Allergy Verified 01/11/18 21:21 Review of Systems ROS: all other systems reviewed are negative [facility] Medical History Medical History Coronary artery disease (Acute) Patient denies medical problems (Acute) Surgical History Surgical History Aortic valve replaced (Acute) Hx of CABG (Acute) Mitral valve replaced (Acute) S/P wrist surgery (Acute) Social History Social History Substance History: No History of Abuse Second Hand Smoke Exposure: No Smoking Status: Never smoker Tobacco Type: Cigarettes How Often Do You Have a Drink Containing Alcohol: Unable to Obtain Immunization History Tetanus Immunization: Unsure Exam Const General: cooperative, healthy appearing, comfortable, no acute distress and well developed Orientation: alert, awake and oriented x3 HENMT Head: normal to inspection, normocephalic and atraumatic Eyes Alignment and Position: alignment normal and position abnormal Conjunctivae: conjunctivae normal Sclera: sclerae normal EOM: EOM intact bilaterally Neck Neck: normal visual inspection and full ROM Chest Chest: normal inspection of the chest and other Resp Effort & Inspection: normal respiratory effort and able to speak in complete sentences Auscultation: clear to auscultation bilaterally Cardio Rate: regular rate Rhythm: abnormal rhythm (He is in atrial fibrillation ) GI Inspection: normal to inspection Palpation: soft Back/Spine/Pelvis Cervical Spine: cervical ROM normal Thoracic/Lumbar Spine: thoraco-lumbar ROM normal Skin General: no rashes or lesions noted, turgor normal and dry skin Neuro General: alert, awake, oriented x3, moves all extremities and CN's II-XI intact bilaterally Extrem General: normal to inspection and full ROM Psych Appearance: grossly normal Mental Status: mental status grossly normal Speech and Movement: speech and movement normal Mood: congruent mood Affect: normal affect Attitude: cooperative Thought Process: normal Thought Content: normal Judgment: judgment good Course Initial Documented Vital Signs Temperature 98 F 01/18/18 12:13 Pulse Rate 93 H 01/18/18 12:13 Respiratory Rate 22 01/18/18 12:13 Blood Pressure 93/74 L 01/18/18 12:13 Pulse Oximetry 95 01/18/18 12:13 Last Documented Vital Signs Temperature 98 F 01/18/18 12:13 Pulse Rate 87 01/18/18 14:36 Respiratory Rate 20 01/18/18 14:36 Blood Pressure 101/60 01/18/18 14:36 Pulse Oximetry 95 01/18/18 12:13 Medical Decision Making MDM Narrative Medical decision making narrative: This patient was brought to us by rescue [place] [facility]. He is currently there for rehab. He was just admitted to rehab on 01/15. He is sent to us today at the request of his daughter because of shaking and jerking which started yesterday. The daughter states that she had him brought here because she wants him to be admitted to [facility]. This patient is status post CABG, AVR and MVR on 12/30. He was initially admitted on 12/23 with a non-STEMI. He was in the hospital until 01/09. He bounced back on 01/12 with congestive heart failure. He was eventually discharged to rehab on 01/15. The patient has no significant physical findings on exam except for tremors. The etiology for his symptoms has not been found. I will discuss the case with the hospitalist. Family is requesting admission to the hospital overnight for "monitoring." Dr. Godwin will place the patient in OBS. Medical Screen Exam Complete: Yes Emergency Medical Condition: Yes Differential Diagnosis Differential Diagnosis: Differential diagnosis includes psychiatric disorder, electrolyte abnormality Lab Data Lab results reviewed: Yes I reviewed the patient's lab results. Result diagrams: 01/18/18 13:11 01/18/18 13:11 Lab Results 01/18/18 01/18/18 01/18/18 Range/Units 13:11 13:11 13:11 WBC 11.7 H (4.0-11.0) th/mm3 RBC 3.44 L (4.50-5.90) mil/mm3 Hgb 9.4 L (13.0-17.0) gm/dL Hct 29.2 L (39.0-51.0) % MCV 84.9 (80.0-100.0) fL MCH 27.4 (27.0-34.0) pg MCHC 32.3 (32.0-36.0) % RDW 17.4 H (11.6-17.2) % Plt Count 231 (150-450) th/mm3 MPV 8.5 (7.0-11.0) fL Neut % (Auto) 82.5 H (16.0-70.0) % Lymph % (Auto) 5.9 L (9.0-44.0) % [place] % (Auto) 9.7 H (0.0-8.0) % Eos % (Auto) 1.2 (0.0-4.0) % Baso % (Auto) 0.7 (0.0-2.0) % Neut # (Auto) 9.7 H (1.8-7.7) th/mm3 Lymph # (Auto) 0.7 L (1.0-4.8) th/mm3 [place] # (Auto) 1.1 H (0.0-0.9) th/mm3 Eos # (Auto) 0.1 (0.0-0.4) th/mm3 Baso # (Auto) 0.1 (0.0-0.2) th/mm3 WBC Differential . Differential Comment Auto diff final Sodium 139 (136-145) meq/L Potassium 3.6 (3.5-5.1) meq/L Chloride 103 (98-107) meq/L Carbon Dioxide 29.0 (21.0-32.0) meq/L Anion Gap 7 (5-15) meq/L BUN 19 H (7-18) mg/dL Creatinine 1.26 (0.60-1.30) mg/dL Estimated GFR 56 L (>89) mL/min Random Glucose 78 (74-106) mg/dL Calcium 8.5 (8.5-10.1) mg/dL Magnesium 1.8 (1.5-2.5) mg/dL Total Bilirubin 0.5 (0.2-1.0) mg/dL AST 29 (15-37) U/L ALT 25 (12-78) U/L Alkaline Phosphatase 74 (45-117) U/L B-Natriuretic Peptide 389 H (0-100) pg/mL Total Protein 6.4 D (6.4-8.2) g/dL Albumin 2.3 L (3.4-5.0) g/dL Urine Color (Yellw/Straw) Urine Clarity (Clear) Urine pH (5.0-8.5) Ur Specific [place] (1.002-1.035) Urine Protein (Neg-Trace) mg/dL Urine Glucose (UA) (Negative) mg/dL Urine Ketones (Negative) mg/dL Urine Occult Blood (Negative) Urine Nitrate (Negative) Urine Bilirubin (Negative) Urine Urobilinogen (Less than 2) mg/dL Ur Leukocyte Esterase (Negative) Urine RBC (0-3) /hpf Urine WBC (0-5) /hpf Ur Squamous Epith Cells (0-5) /hpf Urine Mucus (Occasional) /lpf Micro UA Comment Ur Microscopic Review Urine Culture Comments 01/18/18 Range/Units 16:18 WBC (4.0-11.0) th/mm3 RBC (4.50-5.90) mil/mm3 Hgb (13.0-17.0) gm/dL Hct (39.0-51.0) % MCV (80.0-100.0) fL MCH (27.0-34.0) pg MCHC (32.0-36.0) % RDW (11.6-17.2) % Plt Count (150-450) th/mm3 MPV (7.0-11.0) fL Neut % (Auto) (16.0-70.0) % Lymph % (Auto) (9.0-44.0) % [place] % (Auto) (0.0-8.0) % Eos % (Auto) (0.0-4.0) % Baso % (Auto) (0.0-2.0) % Neut # (Auto) (1.8-7.7) th/mm3 Lymph # (Auto) (1.0-4.8) th/mm3 [place] # (Auto) (0.0-0.9) th/mm3 Eos # (Auto) (0.0-0.4) th/mm3 Baso # (Auto) (0.0-0.2) th/mm3 WBC Differential Differential Comment Sodium (136-145) meq/L Potassium (3.5-5.1) meq/L Chloride (98-107) meq/L Carbon Dioxide (21.0-32.0) meq/L Anion Gap (5-15) meq/L BUN (7-18) mg/dL Creatinine (0.60-1.30) mg/dL Estimated GFR (>89) mL/min Random Glucose (74-106) mg/dL Calcium (8.5-10.1) mg/dL Magnesium (1.5-2.5) mg/dL Total Bilirubin (0.2-1.0) mg/dL AST (15-37) U/L ALT (12-78) U/L Alkaline Phosphatase (45-117) U/L B-Natriuretic Peptide (0-100) pg/mL Total Protein (6.4-8.2) g/dL Albumin (3.4-5.0) g/dL Urine Color Yellow (Yellw/Straw) Urine Clarity Hazy H (Clear) Urine pH 5.0 (5.0-8.5) Ur Specific [place] 1.019 (1.002-1.035) Urine Protein 30 H (Neg-Trace) mg/dL Urine Glucose (UA) Negative (Negative) mg/dL Urine Ketones Negative (Negative) mg/dL Urine Occult Blood Negative (Negative) Urine Nitrate Negative (Negative) Urine Bilirubin Negative (Negative) Urine Urobilinogen Less than 2 (Less than 2) mg/dL Ur Leukocyte Esterase Negative (Negative) Urine RBC 1 (0-3) /hpf Urine WBC 4 (0-5) /hpf Ur Squamous Epith Cells <1 (0-5) /hpf Urine Mucus Few H (Occasional) /lpf Micro UA Comment Cath-culture not ind Ur Microscopic Review Not Reportable Urine Culture Comments Cath-cult not ind Imaging Data Radiologist's impression: Chest X-Ray 01/18/18 14:20 CONCLUSION: 1. Perihilar infiltrates consistent with possible pulmonary vascular congestion. 2. Small left pleural effusion and tiny right pleural effusion. 3. Cardiomegaly. ECG Data EKG Prior to Arrival: No Attestation: I personally reviewed and interpreted this ECG as follows: Discharge Plan Discharge Disposition Patient Disposition: 30 Still Patient Discharge Details Diagnosis: Coarse tremors Physicians Team ED Provider: Chio Calles Primary Care Provider: Primary Care Sammie Jacobsen Rxs /Orders / Referrals /Forms Prescriptions: No Action atorvastatin 40 mg Tablet 40 mg PO HS RF: 0 diltiazem HCl 240 mg Capsule,Extended Release 24hr 240 mg PO DAILY RF: 0 aspirin 81 mg Tablet,Delayed Release (Dr/Ec) 81 mg PO DAILY RF: 0 docusate sodium [DOK] 100 mg Capsule 100 mg PO BID RF: 0 duloxetine 60 mg Capsule,Delayed Release(Dr/Ec) 60 mg PO DAILY RF: 0 cholecalciferol (vitamin D3) [Vitamin D3] 1,000 unit Tablet 2,000 unit PO DAILY RF: 0 budesonide-formoterol [Symbicort] 80-4.5 mcg/actuation Hfa Aerosol Inhaler 1 puff INH BID RF: 0 okizihka-llae-NF-calcium-mins [Thera M Plus (ferrous fumarat)] 9 mg iron-400 mcg Tablet 1 tab PO DAILY RF: 0 apixaban [Eliquis] 5 mg Tablet 5 mg PO BID RF: 0 amiodarone 200 mg Tablet 200 mg PO DAILY Qty: 36 RF: 0 torsemide 5 mg Tablet 5 mg PO DAILY Qty: 30 RF: 2 levofloxacin 750 mg Tablet 750 mg PO Q24H Qty: 3 RF: 0 metoprolol tartrate 25 mg Tablet 25 mg PO BID Qty: 60 RF: 2 hydrocodone-acetaminophen 5-325 mg Tablet 1 tab PO Q4H PRN (Reason: Pain 5-10) Qty: 12 RF: 0 Discharge Interventions Interventions: Vital Signs Last Done: 01/18/18 14:36 Status ED Status: Pending Admission
--- NOTE | 2018-01-18 15:43 | XR ---
EXAM DATE: 01/18/2018 3:24 PM EST AGE/SEX: 77 years / Male INDICATIONS: Chest Pain CLINICAL DATA: This is the patient's initial encounter. Patient reports that signs and symptoms have been present for 1 day and indicates a pain score of 6/10. MEDICAL/SURGICAL HISTORY: . Myocardial infarction. CAD. A-fib CABG. COMPARISON: [facility] [place], CHEST 1V SINGLE AP, 01/13/2018. . FINDINGS: The heart remains enlarged. Mild perihilar infiltrates are noted consistent with possible pulmonary v ascular congestion. Small left pleural effusion is noted. Tiny right pleural effusion is also noted. CONCLUSION: 1. Perihilar infiltrates consistent with possible pulmonary vascular congestion. 2. Small left pleural effusion and tiny right pleural effusion. 3. Cardiomegaly. Electronically signed by: Tanvir Hernández MD 01/18/2018 3:42 PM EST
[2018-01-18 16:52] LABS: Bilirubin,Urine Negative (Negative); Clarity,Urine Hazy (Clear); Color,Urine Yellow (Yellw/Straw); Glucose,Urine (UA) Negative (Negative); Leukocyte Esterase,Urine Negative (Negative); Mucus,Urine Few /lpf (Occasional); Nitrite,Urine Negative (Negative); Specific Gravity,Urine 1.019 (1.002-1.035); Squamous Epithelial Cell,Urine <1 /hpf (0-5)
[2018-01-18] MEDS ORDERED: Bisacodyl 10 MG Supp RECTAL PRN (18:00)
[2018-01-18] MEDS ORDERED: Acetaminophen 325 MG Tablet PO PRN (18:00)
[2018-01-18] MEDS ORDERED: Naloxone Inj 0.4 MG/ML Vial IV.PUSH PRN ×2 (18:00→18:24)
--- NOTE | 2018-01-18 18:13 | P.HPIM ---
History of Present Illness Service: [facility] Primary Care Physician: No Primary Care Physician Chief Complaint: SHAKING WEAKNESS- GENERALIZED WEAKNESS History of Present Illness: Patient is a 77-year-old gentleman. He was recently in the hospital for congestive heart failure and COPD/pneumonia. Had been here for a couple days. Was diuresed and was sent home on antibiotics to the alf facility. Patient now returns at family's request to due to weakness that has worsened. And tremors./Shaking. And jerking. Has had some history of postoperative chest pain previously but had recently had a coronary artery bypass and graft a couple weeks ago on December 30. Patient has a history of aortic valve replacement as well as history of CABG and history of mitral valve replacement history of wrist surgery. Also coronary artery disease. Has a history of extensive tobacco abuse. Patient had been in the hospital from December 23 with a non-ST elevation MA had the coronary artery bypass and graft as well as a an AVR and MVR on December 30. Was in the hospital until January 09 he then bounced back to January 12 with congestive heart failure was discharged back to rehab on January 15. Patient is now only having some hemorrhage and may be some slight wheezing. We will monitor over Night. Will get physical therapy and occupational therapy to eval and treat as well as case management to help with placement. 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 - Medical History Medical History: Medical History (Last Updated 01/18/18 @ 18:08 by Emigdio Godwin DO) Tobacco abuse Coronary artery disease Patient denies medical problems - Surgical History Surgical History: Surgical History (Last Reviewed 01/18/18 @ 18:08 by Emigdio Godwin DO) Aortic valve replaced Hx of CABG Mitral valve replaced S/P wrist surgery - Family History Family History: Family History (Last Reviewed 01/18/18 @ 18:08 by Emigdio Godwin DO) Mother Age older than 85 years Father Age older than 85 years - Social History I have reviewed the patient's Social History: Yes - Tobacco History Second Hand Smoke Exposure: No Tobacco Use In Past 30 Days: No Smoking Status: Never smoker Tobacco Type: Cigarettes - Alcohol History How Often Do You Have a Drink Containing Alcohol: Unable to Obtain (Patient is currently at [facility]) - Substance Use History Substance History: No History of Abuse - Travel History History of Recent Travel: No Recent Travel in the [place] Within the Last 8 Weeks: No Recent Travel Out of the Country Within the Last 8 Weeks: No - Immunization History Tetanus Immunization: Unsure Medications and Allergies Active Medications: Active Medications Hydrocodone Bitart/Acetaminophen ([place] 5/325) 1 tab PO Q4H PRN PRN Reason: Pain 5-10 Amiodarone HCl (Cordarone) 200 mg PO DAILY MARICEL Apixaban (Eliquis) 5 mg PO BID MARICEL Aspirin (Ecotrin) 81 mg PO DAILY MARICEL Atorvastatin Calcium (Lipitor) 40 mg PO HS MARICEL Budesonide/Formoterol Fumarate (Symbicort 80/4.5 Mcg Inh) 1 puff INH BID MARICEL Diltiazem HCl (Cardizem Cd 24hr) 240 mg PO DAILY MARICEL Docusate Sodium (Colace) 100 mg PO BID MARICEL Duloxetine HCl (Cymbalta) 60 mg PO DAILY MARICEL Levofloxacin (Levaquin) 750 mg PO Q24H MARICEL Metoprolol Tartrate (Lopressor) 25 mg PO BID MARICEL Multivitamins/Minerals (Theragran-M) 1 tab PO DAILY MARICEL Torsemide (Demadex) 5 mg PO DAILY MARICEL Vitamin D (Vitamin D3) 2,000 unit PO DAILY MARICEL Allergies Allergy/AdvReac Type Severity Reaction Status Date / Time No Known Allergies Allergy Verified 01/11/18 21:21 Exam Vital signs: Vital Signs 01/18/18 12:13 01/18/18 14:36 Temperature 98 F Pulse Rate 93 H 87 Respiratory Rate 22 20 Blood Pressure 93/74 L 101/60 Pulse Oximetry 95 Intake & Output 01/17/18 01/18/18 01/18/18 18:59 06:59 18:59 Weight 70.76 kg Narrative: GENERAL: Awake alert and oriented x3 talkative and cooperative has a slight tremor SKIN: Warm and dry. HEAD: Atraumatic. Normocephalic. EYES: Pupils equal and round. No scleral icterus. No injection or drainage. EOMI ENT: No nasal bleeding or discharge. Mucous membranes pink and moist. NECK: Trachea midline. No JVD. Supple CARDIOVASCULAR: Regular rate and rhythm. S1-S2 no S3 or S4 has a midline incision that appears clean dry and intact RESPIRATORY: No accessory muscle use. Clear to auscultation. Breath sounds equal bilaterally. Few scattered wheezes GASTROINTESTINAL: Abdomen soft, non-tender, nondistended. Hepatic and splenic margins not palpable. MUSCULOSKELETAL: Extremities without clubbing, cyanosis, or edema. No obvious deformities. NEUROLOGICAL: Awake and alert. No obvious cranial nerve deficits. Motor grossly within normal limits. 4 out of 5 muscle strength in the arms and legs. Normal speech. PSYCHIATRIC: Appropriate mood and affect; insight and judgment normal. Results - Labs CBC & Chem 7: 01/18/18 13:11 01/18/18 13:11 Labs: Short CBC 01/18/18 Range/Units 13:11 WBC 11.7 H (4.0-11.0) th/mm3 Hgb 9.4 L (13.0-17.0) gm/dL Hct 29.2 L (39.0-51.0) % Plt Count 231 (150-450) th/mm3 BMP 01/18/18 13:11 Sodium 139 Potassium 3.6 Chloride 103 Carbon Dioxide 29.0 BUN 19 H Creatinine 1.26 Calcium 8.5 Liver Function 01/18/18 Range/Units 13:11 Total Bilirubin 0.5 (0.2-1.0) mg/dL AST 29 (15-37) U/L ALT 25 (12-78) U/L Alkaline Phosphatase 74 (45-117) U/L Albumin 2.3 L (3.4-5.0) g/dL Urine 01/18/18 Range/Units 16:18 Urine Color Yellow (Yellw/Straw) Urine Clarity Hazy H (Clear) Urine pH 5.0 (5.0-8.5) Ur Specific [place] 1.019 (1.002-1.035) Urine Protein 30 H (Neg-Trace) mg/dL Urine Glucose (UA) Negative (Negative) mg/dL - Imaging Impressions Chest X-Ray 01/18/18 14:20 CONCLUSION: 1. Perihilar infiltrates consistent with possible pulmonary vascular congestion. 2. Small left pleural effusion and tiny right pleural effusion. 3. Cardiomegaly. Caprini VTE Risk Assessment Caprini VTE Risk Assessment: Moderate/High Risk (score >= 2) Caprini Risk Assessment Model: Point Value = 1 Point Value = 2 Point Value = 3 Point Value = 5 Age 41-60 Minor surgery BMI > 25 kg/m2 Swollen legs Varicose veins or History of unexplained or recurrent spontaneous Oral contraceptives or hormone replacement Sepsis (< 1 month) Serious lung disease, including pneumonia (< 1 month) Abnormal pulmonary function Acute myocardial infarction Congestive heart failure (< 1 month) History of inflammatory bowel disease Medical patient at bed rest Age 61-74 Arthroscopic surgery Major open surgery (> 45 min) Laparoscopic surgery (> 45 min) Malignancy Confined to bed (> 72 hours) Immobilizing plaster cast Central venous access Age >= 75 History of VTE Family history of VTE Factor V Leiden Prothrombin [id number] Lupus anticoagulant Anticardiolipin antibodies Elevated serum homocysteine Heparin-induced thrombocytopenia Other congenital or acquired thrombophilia Stroke (< 1 month) Elective arthroplasty Hip, pelvis, or leg fracture Acute spinal cord injury (< 1 month) Prophylaxis Regimen: Total Risk Factor Score Risk Level Prophylaxis Regimen 0-1 Low Early ambulation 2 Moderate Order ONE of the following: *Sequential Compression Device (SCD) *Heparin 5000 units SQ BID 3-4 Higher Order ONE of the following medications: *Heparin 5000 units SQ TID *Enoxaparin/Lovenox 40 mg SQ daily (WT < 150 kg, CrCl > 30 mL/min) *Enoxaparin/Lovenox 30 mg SQ daily (WT < 150 kg, CrCl > 10-29 mL/min) *Enoxaparin/Lovenox 30 mg SQ BID (WT < 150 kg, CrCl > 30 mL/min) AND/OR *Sequential Compression Device (SCD) 5 or more Highest Order ONE of the following medications: *Heparin 5000 units SQ TID (Preferred with Epidurals) *Enoxaparin/Lovenox 40 mg SQ daily (WT < 150 kg, CrCl > 30 mL/min) *Enoxaparin/Lovenox 30 mg SQ daily (WT < 150 kg, CrCl > 10-29 mL/min) *Enoxaparin/Lovenox 30 mg SQ BID (WT < 150 kg, CrCl > 30 mL/min) AND *Sequential Compression Device (SCD) Assessment and Plan - Plan Generalized weakness and severe deconditioning status post coronary artery bypass and graft and MVR and AVR surgery -We will get physical therapy and occupational therapy to eval and treat -Case management regarding discharge planning COPD/pneumonia -Continue on Symbicort and Levaquin We will add incentive spirometry We will add albuterol albuterol We will give a short course of steroids Hyperlipidemia continue on atorvastatin Blood pressure can/atrial fibrillation continue on diltiazem and aspirin and Eliquis and amiodarone and metoprolol Atrial fibrillation continue on Eliquis and amiodarone and metoprolol and diltiazem Depression continue on duloxetine History of recent fluid overload/congestive heart failure continue on torsemide DVT prophylaxis with Eliquis GI prophylaxis with Pepcid Pain control as needed Code Status: Full code Discussed Condition With: RN and patient and family and ER physician Discharge Planning: Pending improvement hopefully back to SNF will need aggressive rehab
[2018-01-18] MEDS ORDERED: MethylPREDNISolone Sod Succinate Inj 125 MG/2 ML Vial IV.PUSH ONE (18:14)
[2018-01-18] MEDS ORDERED: LORazepam 0.5 MG Tablet PO PRN (18:16)
[2018-01-18] MEDS ORDERED: oxyCODONE/Acetaminophen 10/325 Tablet PO PRN (18:24)
[2018-01-18] MEDS ORDERED: Morphine Inj 4 MG/ML Vial IV.PUSH PRN ×4 (18:24)
--- NOTE | 2018-01-18 20:32 | CT ---
EXAM DATE: 01/18/2018 8:27 PM EST AGE/SEX: 77 years / Male INDICATIONS: Weakness and tremors; patient is one month post CABG. CLINICAL DATA: This is the patient's initial encounter. Patient reports that signs and symptoms have been present for 1 day and indicates a pain score of 0/10. MEDICAL/SURGICAL HISTORY: Cardiovascular disease. CABG. Aortic and mitral valve replacement RADIATION DOSE: 66.34 CTDI (mGy) COMPARISON: No prior exams available for comparison. TECHNIQUE: CT of the head without contrast. Using automated exposure control and adjustment of the mA and/or kV according to patient size, radiation dose was kept as low as reasonably achievable to ob tain optimal diagnostic quality images. DICOM format image data is available electronically for revi ew and comparison. FINDINGS: Cerebrum: Moderate diffuse cerebral atrophy. The ventricles are normal for degree of atrophy. Modera te periventricular white matter hypodensities. No evidence of midline shift, mass lesion, hemorrhage or acute infarction. No extraaxial fluid collections are seen. Posterior Fossa: The cerebellum and brainstem are intact. The 4th ventricle is midline. The cerebe llopontine angle is unremarkable. Extracranial: The visualized portion of the orbits is intact. Skull: The calvaria is intact. No evidence of skull fracture. CONCLUSION: 1. Senescent changes with moderate periventricular ischemic white matter demyelination. 2. No acute intracranial abnormality. . Electronically signed by: Camron Ball MD 01/18/2018 8:31 PM EST
[2018-01-18 21:48] LABS: Free T4 (Free Thyroxine) 0.87 ng/dL (0.76-1.46); Thyroid Stimulating Hormone 16.8 uIU/mL (0.358-3.740); Troponin I 0.22 ng/mL (0.02-0.05)
[2018-01-18] MEDS: levoFLOXacin 750 MG Tablet PO SCH (23:40)
[2018-01-18] MEDS: Senna/Docusate Sodium 8.6/50 MG Tablet PO SCH (23:40)
[2018-01-18] MEDS: Metoprolol Tartrate 25 MG Tablet PO SCH (23:41)
[2018-01-18] MEDS: Famotidine 20 MG Tablet PO SCH (23:41)
[2018-01-18] MEDS: Docusate Sodium 100 MG Capsule PO SCH (23:43)
[2018-01-18] MEDS: Budesonide-Formoterol 80/4.5 MCG 6.9 GM Inhaler INH SCH (23:44)
[2018-01-18] MEDS: MethylPREDNISolone Sod Succinate Inj 40 MG/ML Vial IV.PUSH SCH (23:44)
[2018-01-19 02:08] LABS: Alanine Aminotransferase 24 U/L (12-78); Albumin 2.3 g/dL (3.4-5.0); Anion Gap 8 meq/L (5-15); Aspartate Aminotransferase 27 U/L (15-37); Blood Urea Nitrogen 23 mg/dL (7-18); Calcium 8.3 mg/dL (8.5-10.1); Carbon Dioxide 29.4 meq/L (21.0-32.0); Chloride 103 meq/L (98-107); Glomerular Filtration Rate 56 mL/min (>89); Glucose,Random 101 mg/dL (74-106); Magnesium 1.6 mg/dL (1.5-2.5); Phosphorus 3.5 mg/dL (2.5-4.9); Potassium 3.9 meq/L (3.5-5.1); Sodium 140 meq/L (136-145)
[2018-01-19 02:12] LABS: Alkaline Phosphatase 74 U/L (45-117); Total Protein 6.5 g/dL (6.4-8.2)
[2018-01-19 02:13] LABS: Creatine Kinase 69 U/L (39-308)
[2018-01-19] MEDS: Metoprolol Tartrate 25 MG Tablet PO SCH ×3 (02:23→21:45)
[2018-01-19] MEDS: MethylPREDNISolone Sod Succinate Inj 40 MG/ML Vial IV.PUSH SCH ×2 (05:15→14:39)
[2018-01-19 07:28] LABS: Baso % (Auto) 0.2 % (0.0-2.0); Eos % (Auto) 0.1 % (0.0-4.0); Hematocrit 29.9 % (39.0-51.0); Hemoglobin 9.9 gm/dL (13.0-17.0); Lymph # (Auto) 0.2 th/mm3 (1.0-4.8); Lymph % (Auto) 2.1 % (9.0-44.0); Mean Corpuscular HGB Conc 33.2 % (32.0-36.0); Mean Corpuscular Hemoglobin 27.7 pg (27.0-34.0); Mean Corpuscular Volume 83.6 fL (80.0-100.0); Mean Platelet Volume 8.1 fL (7.0-11.0); Mono # (Auto) 0.2 th/mm3 (0.0-0.9); Mono % (Auto) 1.7 % (0.0-8.0); Neut # (Auto) 9.7 th/mm3 (1.8-7.7); Neut % (Auto) 95.9 % (16.0-70.0); Platelet Count 219 th/mm3 (150-450); Red Blood Count 3.58 mil/mm3 (4.50-5.90); Red Cell Distribution Width 17.1 % (11.6-17.2); White Blood Count 10.1 th/mm3 (4.0-11.0)
--- NOTE | 2018-01-19 08:35 | P.PNIM ---
Subjective Interval history: Pt seen and examined for f/u generalized weakness and tremors/jerking. Daughter is present at the bedside who has been with the patient constantly for the past several weeks during all of his hospitalizations. She states his current presentation is completely new in the last couple days. She is unsure if it's because he was recently tapered from 60 mg Cymbalta to 40 mg or if because he was recently started on Remeron. He has been extremely weak to the point where he can barely stay in a chair and he has had involuntary muscle tremors and upper extremity movements for the past couple days that seem to be worse when he is resting or sleeping. She states he also seemed to be hallucinating two nights ago. The patient is arousable and oriented x 3. He denies any chest pain , shortness of breath, abdominal pain, nausea, vomiting, or headaches. He hasn' t had any slurred speech or blurry vision. Physical Exam Vital signs: Vital Signs 01/18/18 12:13 01/18/18 14:36 01/18/18 20:00 Temperature 98 F 98.1 F Pulse Rate 93 H 87 120 H Respiratory Rate 22 20 17 Blood Pressure 93/74 L 101/60 99/62 L Pulse Oximetry 95 97 01/18/18 23:01 01/19/18 00:00 01/19/18 04:00 Temperature 98.5 F 97.8 F Pulse Rate 123 H 117 H Respiratory Rate 17 16 Blood Pressure 118/71 Pulse Oximetry 96 94 L 95 01/19/18 08:00 Temperature 97.9 F Pulse Rate 115 H Respiratory Rate 18 Blood Pressure Pulse Oximetry 98 Intake & Output 01/18/18 01/19/18 01/19/18 18:59 06:59 18:59 Weight 70.76 kg Other: # Voids 0 Narrative: GENERAL: WN, WD elderly male resting in bed with involuntary movements and jerking of his upper extremities. SKIN: Warm and dry. Median sternotomy scar. Stage 2 sacral pressure wound. HEENT: AT/NC. Pupils equal and round. MMM. NECK: Supple no tender LAD or JVD. HEART: Tachycardic, rhythm appears to be regular. LUNGS: CTAB without wheezes or crackles. ABDOMEN: +BS, soft, NT, ND. EXTREMITIES: No LE edema. 1+ pedal pulses. NEURO: Involuntary movements and jerking of his upper extremities seen more prominently as the patient drifts to sleep but when he is aroused and sat up it seems to decrease and he is completely alert and oriented x 3 and able to follow commands. Strength 5/5 bilaterally. Sensation intact. Results - Labs CBC & Chem 7: 01/19/18 06:10 01/19/18 01:35 Laboratory Results - last 24 hr 01/18/18 01/18/18 01/18/18 13:11 13:11 13:11 WBC 11.7 H RBC 3.44 L Hgb 9.4 L Hct 29.2 L MCV 84.9 MCH 27.4 MCHC 32.3 RDW 17.4 H Plt Count 231 MPV 8.5 Neut % (Auto) 82.5 H Lymph % (Auto) 5.9 L Valencia % (Auto) 9.7 H Eos % (Auto) 1.2 Baso % (Auto) 0.7 Neut # (Auto) 9.7 H Lymph # (Auto) 0.7 L Valencia # (Auto) 1.1 H Eos # (Auto) 0.1 Baso # (Auto) 0.1 WBC Differential . Differential Comment Auto diff final Sodium 139 Potassium 3.6 Chloride 103 Carbon Dioxide 29.0 Anion Gap 7 BUN 19 H Creatinine 1.26 Estimated GFR 56 L Random Glucose 78 Calcium 8.5 Phosphorus Magnesium 1.8 Total Bilirubin 0.5 AST 29 ALT 25 Alkaline Phosphatase 74 Total Creatine Kinase Troponin I B-Natriuretic Peptide 389 H Total Protein 6.4 D Albumin 2.3 L TSH Free T4 Urine Color Urine Clarity Urine pH Ur Specific Wilton Urine Protein Urine Glucose (UA) Urine Ketones Urine Occult Blood Urine Nitrate Urine Bilirubin Urine Urobilinogen Ur Leukocyte Esterase Urine RBC Urine WBC Ur Squamous Epith Cells Urine Mucus Micro UA Comment Ur Microscopic Review Urine Culture Comments 01/18/18 01/18/18 01/19/18 16:18 20:52 01:35 WBC RBC Hgb Hct MCV MCH MCHC RDW Plt Count MPV Neut % (Auto) Lymph % (Auto) Valencia % (Auto) Eos % (Auto) Baso % (Auto) Neut # (Auto) Lymph # (Auto) Valencia # (Auto) Eos # (Auto) Baso # (Auto) WBC Differential Differential Comment Sodium 140 Potassium 3.9 Chloride 103 Carbon Dioxide 29.4 Anion Gap 8 BUN 23 H Creatinine 1.25 Estimated GFR 56 L Random Glucose 101 Calcium 8.3 L Phosphorus 3.5 Magnesium 1.6 Total Bilirubin 0.7 AST 27 ALT 24 Alkaline Phosphatase 74 Total Creatine Kinase 60 69 Troponin I 0.22 H 0.20 H B-Natriuretic Peptide Total Protein 6.5 Albumin 2.3 L TSH 16.800 H Free T4 0.87 Urine Color Yellow Urine Clarity Hazy H Urine pH 5.0 Ur Specific Wilton 1.019 Urine Protein 30 H Urine Glucose (UA) Negative Urine Ketones Negative Urine Occult Blood Negative Urine Nitrate Negative Urine Bilirubin Negative Urine Urobilinogen Less than 2 Ur Leukocyte Esterase Negative Urine RBC 1 Urine WBC 4 Ur Squamous Epith Cells <1 Urine Mucus Few H Micro UA Comment Cath-culture not ind Ur Microscopic Review Not Reportable Urine Culture Comments Cath-cult not ind 01/19/18 01/19/18 06:10 06:10 WBC 10.1 RBC 3.58 L Hgb 9.9 L Hct 29.9 L MCV 83.6 MCH 27.7 MCHC 33.2 RDW 17.1 Plt Count 219 MPV 8.1 Neut % (Auto) 95.9 H Lymph % (Auto) 2.1 L Valencia % (Auto) 1.7 Eos % (Auto) 0.1 Baso % (Auto) 0.2 Neut # (Auto) 9.7 H Lymph # (Auto) 0.2 L Valencia # (Auto) 0.2 Eos # (Auto) 0.0 Baso # (Auto) 0.0 WBC Differential . Differential Comment Auto diff final Sodium Potassium Chloride Carbon Dioxide Anion Gap BUN Creatinine Estimated GFR Random Glucose Calcium Phosphorus Magnesium Total Bilirubin AST ALT Alkaline Phosphatase Total Creatine Kinase Troponin I B-Natriuretic Peptide 718 H Total Protein Albumin TSH Free T4 Urine Color Urine Clarity Urine pH Ur Specific Wilton Urine Protein Urine Glucose (UA) Urine Ketones Urine Occult Blood Urine Nitrate Urine Bilirubin Urine Urobilinogen Ur Leukocyte Esterase Urine RBC Urine WBC Ur Squamous Epith Cells Urine Mucus Micro UA Comment Ur Microscopic Review Urine Culture Comments - Imaging Impressions Head CT 01/18/18 00:00 CONCLUSION: 1. Senescent changes with moderate periventricular ischemic white matter demyelination. 2. No acute intracranial abnormality. . Chest X-Ray 01/18/18 14:20 CONCLUSION: 1. Perihilar infiltrates consistent with possible pulmonary vascular congestion. 2. Small left pleural effusion and tiny right pleural effusion. 3. Cardiomegaly. Assessment and Plan - Assessment (1) Systolic heart failure Code(s): I50.20 - Unspecified systolic (congestive) heart failure Status: Chronic (2) Atrial fibrillation Code(s): I48.91 - Unspecified atrial fibrillation Status: Acute (3) Coarse tremors Code(s): G25.2 - Other specified forms of tremor Status: Acute - Plan 77 year old male with HTN, CHF (TIEN 12/25/17 w/ EF 45-50%), COPD, CAD s/p CABG/ AVR/MVR, and AFIB anticoagulated on Eliquis. She has had several admissions recently including 12/23-01/09 for NSTEMI with cath showing multivessel disease and echo with severe /MR ultimately requiring CABG with AVR and MVR, and then again 01/11-01/15 for CHF exacerbation. She presented again on 01/18 to the ED from her SNF for worsening weakness and tremors. 1. Mild CHF exacerbation - CXR showing perihilar infiltrates consistent with pulmonary vascular congestion, small bilateral effusions, and cardiomegaly - BNP 389 --> 718 this AM - Troponins mildly elevated at 0.22 and 0.20 likely from demand and recent NSTEMI/CABG - Resume Bumex - Consult cardiology given patient's extensive cardiac history just in the past month - Will check a procalcitonin level to differentiate the perihilar infiltrates as vascular congestion vs pneumonia 2. Generalized weakness - Likely secondary to cardiac disease - TSH also noted to be elevated - Treat underlying mild CHF exacerbation - PT to eval and treat 3. Upper extremity jerking/tremors - Patient with no confusion and able to follow commands - Neuro following - MRI with bilateral cortical atrophy and chronic white matter changes - EEG ordered 4. Atrial fibrillation with RVR - HR 120s - Increase diltiazem to 300 mg daily - Continue amiodarone and metoprolol - Monitor BPs carefully since she tends to run on lower side - Continue anticoagulation with Eliquis 5. COPD, mild exacerbation - Mild wheezing noted on exam - Continue Symbicort - Albuterol PRN - Stop IV Solumedrol - Prednisone 20 mg PO x 5 days - Continue Levaquin - Supplemental O2 6. Stage II sacral pressure wound - Wound care following - Frequent position changes - Wound care nurse consulted 7. Hypothyroidism - TSH 16.8 and patient symptomatic with weakness - Start Levothyroxine at 25 mcg daily given age and cardiac history - Will need outpatient f/u TSH in 6 weeks 8. CAD - Continue home meds as above 9. Anemia, chronic - H&H stable - No active bleeding - Hemodynamically stable DVT prophylaxis: Eliquis Discharge Planning: Pending EEG results, as well as neuro and cardiology reccs
[2018-01-19] MEDS ORDERED: Duloxetine 60 MG DR Capsule PO SCH (09:00)
[2018-01-19] MEDS ORDERED: dilTIAZem CD 240 MG Capsule PO SCH (09:00)
[2018-01-19] MEDS: Amiodarone 200 MG Tablet PO SCH (10:17)
[2018-01-19] MEDS: Multivitamin/Minerals Therapeutic Tablet PO SCH (10:17)
[2018-01-19] MEDS: dilTIAZem CD 300 MG Capsule PO SCH (10:18)
[2018-01-19] MEDS: Famotidine 20 MG Tablet PO SCH ×2 (10:19→21:45)
[2018-01-19] MEDS: Senna/Docusate Sodium 8.6/50 MG Tablet PO SCH ×2 (10:19→21:46)
[2018-01-19] MEDS: Docusate Sodium 100 MG Capsule PO SCH ×2 (10:19→21:44)
[2018-01-19] MEDS: Budesonide-Formoterol 80/4.5 MCG 6.9 GM Inhaler INH SCH ×2 (12:00→21:47)
--- NOTE | 2018-01-19 12:17 | MB ---
cc: Ann-Marie Peterson MD DATE: 01/19/2018 REASON FOR CONSULTATION: Change in mental status, hallucination, shaking. HISTORY OF PRESENT ILLNESS: This is a 77-year-old gentleman recently in the hospital for CHF, COPD, pneumonia, was here for a few days diuresed, sent out on antibiotics to a [facility] facility and returns due to worsening mental status, weakness, some tremors, shaking. The patient has a history of aortic valve replacement, bypass surgery, mitral valve replacement. He had been in the hospital 12/23/2017 with a non-ST elevated myocardial infarction and had a coronary bypass graft with AVR and mitral valve 12/30/2017. He was in the hospital until 01/09/2018 and then he came back on 01/12/2018 with CHF and back to rehab on 01/15/2018. PAST MEDICAL HISTORY: As stated. SOCIAL HISTORY: Former smoker. ALLERGIES TO MEDICINES: None. CURRENT MEDICATIONS: His daughter states that they put him on mirtazapine at the [facility] facility, maybe took 2 days of that medicine to help him sleep, as well as to eat better and he was on 60 mg of Cymbalta. Now they are trying to wean him down. He is on 40 mg. Otherwise, he is on Eliquis, the baby aspirin, atorvastatin, Symbicort, diltiazem, amiodarone, Roland, Cymbalta was stated, Levaquin, metoprolol, torsemide, multivitamins, vitamin D. PHYSICAL EXAMINATION: VITAL SIGNS: Temperature 97.9, heart rate 115, respiratory rate 18, blood pressure 120/70, saturating at 98% on 3 liters. GENERAL: He is sleepy, arousable. NEUROLOGIC: Opens his eyes, follows simple commands. I do not see any drift or leg lag. He knows who he is. He knows he is in the hospital. He was able to state it is January 19 and he knows tomorrow is his daughter's birthday. His speech does not sound dysarthric, but hypophonic. He has a hard time maintaining wakefulness. Pupils are reactive. Face is symmetrical. He lifts both arms up antigravity. I do not see any significant drift or leg lag. Does not follow for cerebellar. Gait is withheld at this time. LABORATORY DATA: His TSH is abnormal at 16.800, T4 is normal 0.87. Albumin 2.3. BNP 1718. Two sets of troponin 0.22 and 0.20. HbA1c is pending. GFR is 56. His urine has [address] shows age-related mild changes, mild periventricular white matter changes, no acute abnormality otherwise. His chest x-ray shows perihilar infiltrates with possible pulmonary vascular congestion, small left pleural effusion and tiny right pleural effusion and cardiomegaly. IMPRESSION AND PLAN: Change in mental status, some tremors. He has some delirium as well. Recommend getting an electroencephalogram as well as a brain MRI. I would recommend be discontinuing the Remeron and weaning him off Cymbalta. His last echocardiogram was done 01/12/2018. Ejection fraction 40-45% with some concentric left ventricular hypertrophy and some atrial enlargement. Carotid ultrasound was reported as unremarkable as well on previous admission. RECOMMENDATIONS: As stated, MRI brain, EEG and will continue to follow and make further recommendations accordingly. MD DIOGENES Loyd/shane , 10:23 AM , 10:32 AM
--- NOTE | 2018-01-19 12:18 | MR ---
EXAM DATE: 01/19/2018 12:08 PM EST AGE/SEX: 77 years / Male INDICATIONS: Confusion. Tremors. CLINICAL DATA: This is the patient's initial encounter. Patient reports that signs and symptoms have been present for 1 day and indicates a pain score of 0/10. MEDICAL/SURGICAL HISTORY: Hypertension. Chronic obstructive pulmonary disease. Congestive hea rt failure. Fusion, lumbar. CABG. COMPARISON: [facility], CT HEAD W/O CONTRAST, 01/18/2018. . TECHNIQUE: Multiplanar, multisequence examination of the brain was performed without contrast. FINDINGS: Cerebrum: The ventricles are normal for age. There is bilateral cortical atrophy. No evidence of mi dline shift, mass lesion, hemorrhage or acute infarction. No extraaxial fluid collections are seen. The pituitary gland and suprasellar cistern are normal in configuration. White Matter: Mild chronic white matter changes are noted bilaterally characteristic of ischemic dem yelinization. Posterior Fossa: The cerebellum and brainstem are intact. The 4th ventricle is midline. The cerebel lopontine angle is unremarkable. The cerebellar tonsils are normal in position. Diffusion Imaging: No focal areas of restricted diffusion are seen. No evidence of acute infarction . Extracranial: The visualized portions of the orbits and paranasal sinuses are unremarkable. CONCLUSION: 1. Bilateral cortical atrophy and chronic white matter changes. Electronically signed by: Izaiah Heath MD 01/19/2018 12:17 PM EST
--- NOTE | 2018-01-19 12:58 | ECG ---
Date Performed: 01/18/2018 Time Performed: 12:41:57 PTAGE: 77 years EKG: ATRIAL FIBRILLATION WITH RAPID VENTRICULAR RESPONSE INDETERMINATE AXIS INTRAVENTRICULAR CON DUCTION DELAY LATERAL MYOCARDIAL INFARCTION ACUTE NV Since the PREVIOUS TRACING , no significant change noted PREVIOUS TRACING 01/11/2018 20.57 DOCTOR: Truman Ellington Interpretating Date/Time 01/19/2018 12:56:04
--- NOTE | 2018-01-19 12:58 | ECG ---
Date Performed: 01/19/2018 Time Performed: 01:29:12 PTAGE: 77 years EKG: ATRIAL FLUTTER/TACHYCARDIA WITH RAPID VENTRICULAR RESPONSE WITH ABERRANT CONDUCTION OR VENT RICULAR PREMATURE COMPLEXES INTRAVENTRICULAR CONDUCTION DELAY ABNORMAL ECG Since the PREVIOUS TRACING , no significant change noted PREVIOUS TRACIN01/18/2018 12.41 DOCTOR: Truman Ellington Interpretating Date/Time 01/19/2018 12:56:15
[2018-01-19 14:29] LABS: Hemoglobin A1c 5.5 % (4.3-6.0)
--- NOTE | 2018-01-19 19:17 | MB ---
cc: Clemente Howard DO DATE: 01/19/2018 REASON FOR CONSULTATION: Congestive heart failure, atrial fibrillation. HISTORY OF PRESENT ILLNESS: Moisés Caballero is a pleasant 77-year-old male who I know well from his recent hospitalizations, who presented from rehab due to generalized weakness and tremors. Apparently, he has been extremely weak over the past couple of days as well as unintentional tremors and jerking. He was recently tapered from his Cymbalta from 60 mg to 40 mg and was started on Remeron. He was admitted for further workup by neurology and while here, he was noted to go back into atrial fibrillation with a rapid ventricular response. Because of this, I was asked to see the patient. In seeing him, he is currently obtaining an MRI and is lying flat without significant shortness of breath. He denies any chest pain. PAST MEDICAL HISTORY: 1. Coronary artery disease. 2. Chronic systolic heart failure. 3. COPD. 4. Previous pneumonia. 5. Atrial fibrillation. 6. Previous aortic stenosis with mitral regurgitation. PAST SURGICAL HISTORY: 1. Cardiac catheterization (12/23/2017) multivessel coronary artery disease with ischemic cardiomyopathy. 2. Coronary artery bypass grafting x 3 (12/30/2017) HARVEY to LAD, SVG to second obtuse marginal, saphenous vein graft to ramus. 3. Aortic valve replacement (12/30/2017) with a 20 mm Medtronic Mosaic tissue valve. 4. Mitral valve repair (12/30/2017) with a 28 mm Profile 3D annuloplasty ring. 5. Wrist surgery. ALLERGIES: NO KNOWN DRUG ALLERGIES. MEDICATIONS: 1. Eliquis 5 mg b.i.d. 2. Aspirin 81 mg daily. 3. Lipitor 40 mg every night. 4. Cymbalta 40 mg daily. 5. Symbicort 1 puff b.i.d. 6. Cardizem 240 mg daily. 7. Metoprolol tartrate 25 mg b.i.d. 8. Torsemide 5 mg daily. 9. Amiodarone 200 mg daily. 10. Levofloxacin 750 mg daily. 11. Hydrocodone/acetaminophen 5/325 every 4 hours as needed. FAMILY HISTORY: Denies premature coronary artery disease or sudden cardiac within the family. SOCIAL HISTORY: The patient smoked for a number of years, but quit earlier this year. Denies alcohol or drug abuse. REVIEW OF SYSTEMS: Fourteen systems were reviewed including osteopathic. Pertinent positives and negatives above, otherwise negative. PHYSICAL EXAMINATION: VITAL SIGNS: Temperature 97.9, heart rate 115, blood pressure 120/70, respirations 18, pulse oximetry 98% on 3 liters. GENERAL: The patient appears older than his stated age, alert, awake and oriented x 3. HEENT: Extraocular muscles intact. Mucous membranes moist. NECK: Supple. No JVD at 45 degrees. No carotid bruits heard bilaterally. Carotid upstroke is brisk in nature. HEART: Irregularly irregular and tachycardic. Positive first and second heart sounds with a 1/6 crescendo decrescendo murmur into the right sternal border. LUNGS: Clear to auscultation bilaterally with scattered wheezes. ABDOMEN: Soft, nontender, nondistended. No organomegaly noted. EXTREMITIES: Show no clubbing, cyanosis or edema. Femoral and distal pulses are intact bilaterally. NEUROLOGIC: No focal deficits. He does have a slight involuntary tremor. Muscle strength globally is 4/5. SKIN: Warm, dry and intact. OSTEOPATHIC: No kyphoscoliosis, lordosis or paraspinal tender points. LABORATORY DATA: Hemoglobin 9.9, hematocrit 29.9, platelets 219. Potassium 3.9, BUN 23, creatinine 1.25. Troponin 0.22. Electrocardiogram (01/19/2018 at 0129 hours), atrial flutter with rapid ventricular response, interventricular conduction delay. IMPRESSION: 1. Generalized weakness and deconditioning due to recent surgery as well as hospitalizations. 2. Chronic obstructive pulmonary disease. 3. Atrial fibrillation/atrial flutter with rapid ventricular response. 4. Chronic systolic heart failure. 5. Coronary artery disease, status post coronary artery bypass grafting x 3 as above. 6. Previous aortic stenosis and mitral regurgitation with cardiothoracic surgery as above. 7. Depression. RECOMMENDATIONS: 1. Mr. Caballero presented with significant weakness and deconditioning and overall needs to continue with rehabilitation. 2. He does have an involuntary tremor and this will be worked up from a neurology standpoint. 3. We have had some difficulty with his atrial fibrillation/atrial flutter and this may lead him more into acute on chronic systolic heart failure. As he has been anticoagulated, consideration will be made for a transesophageal echocardiogram with cardioversion to try to put him back into sinus rhythm. On last echocardiogram, his left atrial size was 4.7 cm and so this may be difficult to keep him in sinus rhythm. 4. We will continue with diuresis as possible on torsemide. 5. He will continue on Eliquis for his atrial fibrillation as well as aspirin for his coronary artery disease. Thank you for allowing me to see Moisés Caballero. If there are any questions, please do not hesitate to call. DO MARYSE Barajas/kathleen , 02:59 PM , 03:14 PM
[2018-01-19] MEDS: levoFLOXacin 750 MG Tablet PO SCH (21:44)
--- NOTE | 2018-01-20 08:45 | MG ---
cc: Ann-Marie Peterson MD EEG NUMBER: [id number], [id number]. Photic done awake, drowsy, asleep. Admitted with change in mental status on Eliquis, amiodarone, Cymbalta, and other medications. DESCRIPTION OF RECORD: It had a lot of movement, but overall some mild slowing seen. Photic stimulation does show posterior driving response. No epileptiform features. There is some jerking of his body transcribed by the heat treat technician. This is consistent with artifact, otherwise fairly symmetrical background. IMPRESSION: Mild slowing of background can be seen with sedation and/or encephalopathy, but no evidence of epileptiform features in this recording. Clinical correlation. Ann-Marie Peterson MD DF/rs , 08:27 AM , 08:33 AM
[2018-01-20] MEDS: dilTIAZem CD 300 MG Capsule PO SCH (10:31)
[2018-01-20] MEDS: Multivitamin/Minerals Therapeutic Tablet PO SCH (10:32)
[2018-01-20] MEDS: Famotidine 20 MG Tablet PO SCH ×2 (10:32→20:54)
[2018-01-20] MEDS: predniSONE 20 MG Tablet PO SCH (10:32)
[2018-01-20] MEDS: Senna/Docusate Sodium 8.6/50 MG Tablet PO SCH ×2 (10:32→20:53)
[2018-01-20] MEDS: Docusate Sodium 100 MG Capsule PO SCH ×2 (10:33→20:53)
[2018-01-20] MEDS: Amiodarone 200 MG Tablet PO SCH (10:33)
[2018-01-20] MEDS: Budesonide-Formoterol 80/4.5 MCG 6.9 GM Inhaler INH SCH ×2 (10:33→20:55)
[2018-01-20] MEDS: Metoprolol Tartrate 25 MG Tablet PO SCH ×2 (10:33→20:54)
--- NOTE | 2018-01-20 10:36 | P.PNNEU ---
Subjective Subjective Comments: alert no new c/o Active Medications: Active Medications Acetaminophen (Tylenol) 650 mg PO Q4H PRN PRN Reason: Temp > 100.4 Hydrocodone Bitart/Acetaminophen ([place] 5/325) 1 tab PO Q4H PRN PRN Reason: Pain 5-10 Al Hydroxide/Mg Hydroxide (Milk Of Magnesia Liq) 30 ml PO Q12H PRN PRN Reason: Mild Constipation Albuterol (Duoneb Neb (Kemal)) 1 ampul NEB Q6HR WHILE AWAKE NEB [facility] Last Admin: 01/20/18 08:54 Dose: Not Given Albuterol (Duoneb Neb (Prn)) 1 ampul NEB Q2HR NEB PRN PRN Reason: SHORTNESS OF BREATH Amiodarone HCl (Cordarone) 200 mg PO DAILY [facility] Last Admin: 01/19/18 10:17 Dose: 200 mg Apixaban (Eliquis) 5 mg PO BID [facility] Last Admin: 01/19/18 21:46 Dose: 5 mg Aspirin (Ecotrin) 81 mg PO DAILY [facility] Last Admin: 01/19/18 10:18 Dose: 81 mg Atorvastatin Calcium (Lipitor) 40 mg PO HS [facility] Last Admin: 01/19/18 21:44 Dose: 40 mg Bisacodyl (Dulcolax Supp) 10 mg RECTAL DAILY PRN PRN Reason: SEVERE CONSITIPATION Budesonide/Formoterol Fumarate (Symbicort 80/4.5 Mcg Inh) 1 puff INH BID [facility] Last Admin: 01/19/18 21:47 Dose: 1 puff Diltiazem HCl (Cardizem Cd 24hr) 300 mg PO DAILY [facility] Last Admin: 01/19/18 10:18 Dose: 300 mg Docusate Sodium (Colace) 100 mg PO BID [facility] Last Admin: 01/19/18 21:44 Dose: 100 mg Duloxetine HCl (Cymbalta) 40 mg PO DAILY [facility] Last Admin: 01/19/18 10:22 Dose: 40 mg Famotidine (Pepcid) 20 mg PO BID [facility] Last Admin: 01/19/18 21:45 Dose: 20 mg Lactulose (Lactulose Liq) 30 ml PO DAILY PRN PRN Reason: SEVERE CONSITIPATION Levofloxacin (Levaquin) 750 mg PO Q24H [facility] Last Admin: 12/02/18 21:44 Dose: 750 mg Levothyroxine Sodium (Synthroid) 25 mcg PO DAILY@0600 [facility] Last Admin: 01/20/18 05:50 Dose: 25 mcg Lorazepam (Ativan) 0.5 mg PO Q6H PRN PRN Reason: ANXIETY Metoprolol Tartrate (Lopressor) 25 mg PO BID [facility] Last Admin: 01/19/18 21:45 Dose: 25 mg Morphine Sulfate (Morphine Inj) 4 mg IV.PUSH Q3H PRN PRN Reason: PAIN 6-10;IF UNABLE TO TAKE PO Morphine Sulfate (Morphine Inj) 4 mg IV.PUSH Q3H PRN PRN Reason: BREAKTHROUGH PAIN Morphine Sulfate (Morphine Inj) 4 mg IV.PUSH Q1H PRN PRN Reason: Pain Scale 7-10 (Intractable) Morphine Sulfate (Morphine Inj) 2 mg IV.PUSH Q3H PRN PRN Reason: PAIN 3-5; IF UABLE TO TAKE PO Multivitamins/Minerals (Theragran-M) 1 tab PO DAILY [facility] Last Admin: 01/19/18 10:17 Dose: 1 tab Naloxone HCl (Narcan Inj) 0.4 mg IV.PUSH UNSCH PRN PRN Reason: SEE LABEL COMMENTS Naloxone HCl (Narcan Inj) 0.4 mg IV.PUSH UNSCH PRN PRN Reason: SEE LABEL COMMENTS Ondansetron HCl (Zofran Inj) 4 mg IV.PUSH Q6H PRN PRN Reason: NAUSEA OR VOMITING Oxycodone/Acetaminophen (Percocet 10/325 Mg) 1 tab PO Q6H PRN PRN Reason: PAIN SCALE 6 TO 10 Oxycodone/Acetaminophen (Percocet 5/325 Mg) 1 tab PO Q6H PRN PRN Reason: PAIN SCALE 3 TO 5 Prednisone (Deltasone) 20 mg PO DAILY [facility] Senna/Docusate Sodium (Nohelia-Colace) 1 tab PO BID [facility] Last Admin: 01/19/18 21:46 Dose: 1 tab Sennosides (Senokot) 17.2 mg PO Q12H PRN PRN Reason: Moderate Constipation Sodium Chloride (Ns Flush) 2 ml IV.FLUSH PRN PRN PRN Reason: FLUSH AFTER USING IV ACCESS Sodium Chloride (Ns Flush) 2 ml IV.FLUSH BID [facility] Last Admin: 01/20/18 01:40 Dose: 2 ml Torsemide (Demadex) 5 mg PO DAILY [facility] Last Admin: 01/19/18 10:17 Dose: 5 mg Vitamin D (Vitamin D3) 2,000 unit PO DAILY [facility] Last Admin: 01/19/18 10:17 Dose: 2,000 unit Allergies/Adverse Reactions: Allergies Allergy/AdvReac Type Severity Reaction Status Date / Time No Known Allergies Allergy Verified 01/11/18 21:21 Physical Exam Vital signs: Vital Signs 01/19/18 16:00 01/19/18 20:00 01/20/18 00:00 Temperature 97.8 F 97.7 F 97.7 F Pulse Rate 89 102 H 87 Respiratory Rate 18 17 17 Blood Pressure 106/71 115/70 108/70 Pulse Oximetry 95 95 95 01/20/18 08:00 Temperature 97.9 F Pulse Rate 112 H Respiratory Rate 18 Blood Pressure 113/68 Pulse Oximetry 99 Intake & Output 01/19/18 01/20/18 01/20/18 18:59 06:59 18:59 Other: # Voids 2 1 - Constitutional no acute distress - Routine Neurological Exam Present: alert, oriented X3, CN II-XII intact, moving all extremities, vision grossly intact, hearing grossly intact, normal speech Objective Radiology Results: mri brain neg acute process Laboratory Results - last 24 hr 01/18/18 01/19/18 20:52 01:35 Hemoglobin A1c 5.5 Procalcitonin 0.10 H Diagnostic Tests: eeg no sz mild slowing Review/Management - Diagnosis (1) Encephalopathy Code(s): G93.40 - Encephalopathy, unspecified Status: Acute Current Visit: Yes - Review/Management Plan: seems at baseline neuro w/u neg f/u cardiology for possible nadeem/ablation will sign off call with questions.
--- NOTE | 2018-01-20 11:47 | P.PNIM ---
Subjective Interval history: Pt seen and examined. Feeling much better than yesterday and states he feels like a new person. No jerking movements or tremors noted today. His daughter at the bedside is amazed at how much better he is doing. His daughter states he ate three full meals yesterday compared to the decreased appetite he had been having the past several days. He is going for TIEN with ablation today. Denies CP or SOB at rest but states he gets dyspneic with minimal exertion. Denies edema. Physical Exam Vital signs: Vital Signs 01/19/18 16:00 01/19/18 20:00 01/20/18 00:00 Temperature 97.8 F 97.7 F 97.7 F Pulse Rate 89 102 H 87 Respiratory Rate 18 17 17 Blood Pressure 106/71 115/70 108/70 Pulse Oximetry 95 95 95 01/20/18 08:00 Temperature 97.9 F Pulse Rate 112 H Respiratory Rate 18 Blood Pressure 113/68 Pulse Oximetry 99 Intake & Output 01/19/18 01/20/18 01/20/18 18:59 06:59 18:59 Other: # Voids 2 1 Narrative: GENERAL: WN, WD elderly male resting in bed in NAD. SKIN: Warm and dry. Median sternotomy scar. Stage 2 sacral pressure wound. HEENT: AT/NC. Pupils equal and round. MMM. HEART: Tachycardic, rhythm appears to be regular. LUNGS: Diminished breath sounds with some faint bibasilar crackles otherwise no wheezing. ABDOMEN: +BS, soft, NT, ND. EXTREMITIES: No LE edema. 1+ pedal pulses. NEURO: Awake and alert. Following directions. No involuntary movements. Results - Labs CBC & Chem 7: 01/19/18 06:10 01/19/18 01:35 Laboratory Results - last 24 hr 01/18/18 01/19/18 20:52 01:35 Hemoglobin A1c 5.5 Procalcitonin 0.10 H - Imaging Impressions Head MRI 01/19/18 00:00 CONCLUSION: 1. Bilateral cortical atrophy and chronic white matter changes. Assessment and Plan - Assessment (1) Systolic heart failure Code(s): I50.20 - Unspecified systolic (congestive) heart failure Status: Chronic (2) Atrial fibrillation Code(s): I48.91 - Unspecified atrial fibrillation Status: Acute (3) Coarse tremors Code(s): G25.2 - Other specified forms of tremor Status: Acute - Plan 77 year old male with HTN, CHF (TIEN 12/25/17 w/ EF 45-50%), COPD, CAD s/p CABG/ AVR/MVR, and AFIB anticoagulated on Eliquis. He has had several admissions recently including 12/23-01/09 for NSTEMI with cath showing multivessel disease and echo with severe /MR ultimately requiring CABG with AVR and MVR, and then again 01/11-01/15 for CHF exacerbation. He presented again on 01/18 to the ED from her [facility] for worsening weakness and tremors. 1. Mild CHF exacerbation - CXR showing perihilar infiltrates consistent with pulmonary vascular congestion, small bilateral effusions, and cardiomegaly - BNP 389 --> 718 - Troponins mildly elevated at 0.22 and 0.20 likely from demand and recent NSTEMI/CABG - Resume Bumex - Cardiology following 2. Generalized weakness - Likely secondary to cardiac disease - TSH also noted to be elevated - PT following - recommending rehab 3. Upper extremity jerking/tremors - resolved - Neuro following - MRI with bilateral cortical atrophy and chronic white matter changes - EEG with mild slowing but no epileptiform features - Possibly secondary to extreme fatigue vs. Cymbalta - Continue slow taper of Cymbalta 4. Atrial fibrillation with RVR - Continues to be in RVR - Continue diltiazem 300 mg daily - Continue amiodarone and metoprolol - Monitor BPs carefully since she tends to run on lower side - Continue anticoagulation with Eliquis - Cardiology following, planning for TIEN with ablation today 5. COPD, mild exacerbation - Mild wheezing noted on exam, now resolved - Continue Symbicort - Albuterol PRN - Prednisone 20 mg PO x 5 days - Continue Levaquin - Supplemental O2 6. Stage II sacral pressure wound - Wound care following - Frequent position changes - Wound care nurse consulted 7. Hypothyroidism - TSH 16.8 and patient symptomatic with weakness - Start Levothyroxine at 25 mcg daily given age and cardiac history - Will need outpatient f/u TSH in 6 weeks 8. Pneumonia - CXR on admission with perihilar infiltrates and mild leukocytosis - Procalcitonin elevated - Continue Levaquin 9. CAD - Continue home meds as above 10. Anemia, chronic - H&H stable - No active bleeding - Hemodynamically stable DVT prophylaxis: Eliquis Discharge Planning: Pending EEG results, as well as neuro and cardiology reccs
[2018-01-20] MEDS ORDERED: Metoprolol Tartrate 25 MG Tablet PO SCH (12:25)
[2018-01-20] MEDS ORDERED: Chlorhexidine Gluconate 2% 1 Pack (2 Cloths) TOPICAL SCH (12:25)
[2018-01-20] MEDS ORDERED: Phenylephrine/NS 1000 MCG/10ML Syringe IV.PUSH ONE (12:54)
--- NOTE | 2018-01-20 16:15 | P.PNCA ---
Subjective Interval history: Afib/Aflutter with RVR s/p cardioversion to sinus rhythm Medications and Allergies Active Medications: Active Medications Acetaminophen (Tylenol) 650 mg PO Q4H PRN PRN Reason: Temp > 100.4 Hydrocodone Bitart/Acetaminophen ([place] 5/325) 1 tab PO Q4H PRN PRN Reason: Pain 5-10 Al Hydroxide/Mg Hydroxide (Milk Of Magnesia Liq) 30 ml PO Q12H PRN PRN Reason: Mild Constipation Albuterol (Duoneb Neb (Kemal)) 1 ampul NEB Q6HR WHILE AWAKE NEB [facility] Last Admin: 01/20/18 08:54 Dose: Not Given Albuterol (Duoneb Neb (Prn)) 1 ampul NEB Q2HR NEB PRN PRN Reason: SHORTNESS OF BREATH Amiodarone HCl (Cordarone) 200 mg PO DAILY [facility] Last Admin: 01/20/18 10:33 Dose: 200 mg Apixaban (Eliquis) 5 mg PO BID [facility] Last Admin: 01/20/18 10:32 Dose: 5 mg Aspirin (Ecotrin) 81 mg PO DAILY [facility] Last Admin: 01/20/18 10:32 Dose: 81 mg Atorvastatin Calcium (Lipitor) 40 mg PO HS [facility] Last Admin: 01/19/18 21:44 Dose: 40 mg Bisacodyl (Dulcolax Supp) 10 mg RECTAL DAILY PRN PRN Reason: SEVERE CONSITIPATION Budesonide/Formoterol Fumarate (Symbicort 80/4.5 Mcg Inh) 1 puff INH BID [facility] Last Admin: 01/20/18 10:33 Dose: 1 puff Chlorhexidine Gluconate (Chlorhexidine 2% Cloth) 3 pack [employer] [facility] Stop: 01/20/18 23:59 Diltiazem HCl (Cardizem Cd 24hr) 300 mg PO DAILY [facility] Last Admin: 01/20/18 10:31 Dose: 300 mg Docusate Sodium (Colace) 100 mg PO BID [facility] Last Admin: 01/20/18 10:33 Dose: Not Given Duloxetine HCl (Cymbalta) 40 mg PO DAILY [facility] Last Admin: 01/20/18 10:32 Dose: 40 mg Famotidine (Pepcid) 20 mg PO BID [facility] Last Admin: 01/20/18 10:32 Dose: 20 mg Lactulose (Lactulose Liq) 30 ml PO DAILY PRN PRN Reason: SEVERE CONSITIPATION Levofloxacin (Levaquin) 750 mg PO Q24H [facility] Last Admin: 01/19/18 21:44 Dose: 750 mg Levothyroxine Sodium (Synthroid) 25 mcg PO DAILY@0600 [facility] Last Admin: 01/20/18 05:50 Dose: 25 mcg Lorazepam (Ativan) 0.5 mg PO Q6H PRN PRN Reason: ANXIETY Metoprolol Tartrate (Lopressor) 25 mg PO BID [facility] Last Admin: 01/20/18 10:33 Dose: 25 mg Metoprolol Tartrate (Lopressor) 25 mg PO [employer] [facility] Stop: 01/20/18 23:59 Morphine Sulfate (Morphine Inj) 4 mg IV.PUSH Q3H PRN PRN Reason: PAIN 6-10;IF UNABLE TO TAKE PO Morphine Sulfate (Morphine Inj) 4 mg IV.PUSH Q3H PRN PRN Reason: BREAKTHROUGH PAIN Morphine Sulfate (Morphine Inj) 4 mg IV.PUSH Q1H PRN PRN Reason: Pain Scale 7-10 (Intractable) Morphine Sulfate (Morphine Inj) 2 mg IV.PUSH Q3H PRN PRN Reason: PAIN 3-5; IF UABLE TO TAKE PO Multivitamins/Minerals (Theragran-M) 1 tab PO DAILY [facility] Last Admin: 01/20/18 10:32 Dose: 1 tab Naloxone HCl (Narcan Inj) 0.4 mg IV.PUSH UNSCH PRN PRN Reason: SEE LABEL COMMENTS Naloxone HCl (Narcan Inj) 0.4 mg IV.PUSH UNSCH PRN PRN Reason: SEE LABEL COMMENTS Ondansetron HCl (Zofran Inj) 4 mg IV.PUSH Q6H PRN PRN Reason: NAUSEA OR VOMITING Oxycodone/Acetaminophen (Percocet 10/325 Mg) 1 tab PO Q6H PRN PRN Reason: PAIN SCALE 6 TO 10 Oxycodone/Acetaminophen (Percocet 5/325 Mg) 1 tab PO Q6H PRN PRN Reason: PAIN SCALE 3 TO 5 Povidone Iodine (Betadine 5% Antisepsis Kit) 1 applicatio EACH [employer] [facility] Stop: 01/20/18 23:59 Prednisone (Deltasone) 20 mg PO DAILY [facility] Last Admin: 01/20/18 10:32 Dose: 20 mg Senna/Docusate Sodium (Nohelia-Colace) 1 tab PO BID [facility] Last Admin: 01/20/18 10:32 Dose: 1 tab Sennosides (Senokot) 17.2 mg PO Q12H PRN PRN Reason: Moderate Constipation Sodium Chloride (Ns Flush) 2 ml IV.FLUSH PRN PRN PRN Reason: FLUSH AFTER USING IV ACCESS Sodium Chloride (Ns Flush) 2 ml IV.FLUSH BID [facility] Last Admin: 01/20/18 10:33 Dose: 2 ml Torsemide (Demadex) 5 mg PO DAILY [facility] Last Admin: 01/20/18 10:32 Dose: 5 mg Vitamin D (Vitamin D3) 2,000 unit PO DAILY [facility] Last Admin: 01/20/18 10:31 Dose: 2,000 unit Allergies Allergy/AdvReac Type Severity Reaction Status Date / Time No Known Allergies Allergy Verified 01/11/18 21:21 Physical Exam Vital signs: Vital Signs 01/19/18 20:00 01/20/18 00:00 01/20/18 08:00 Temperature 97.7 F 97.7 F 97.9 F Pulse Rate 102 H 87 105 H Respiratory Rate 17 17 18 Blood Pressure 115/70 108/70 113/68 Pulse Oximetry 95 95 99 01/20/18 15:27 Temperature 96.8 F L Pulse Rate 62 Respiratory Rate 16 Blood Pressure 96/51 L Pulse Oximetry 100 Intake & Output 01/19/18 01/20/18 01/20/18 18:59 06:59 18:59 Other: # Voids 2 1 Narrative: GENERAL: WN, WD elderly male resting in bed in [employer]. SKIN: Warm and dry. Median sternotomy scar. Stage 2 sacral pressure wound. HEENT: AT/NC. Pupils equal and round. MMM. HEART: RRR LUNGS: Diminished breath sounds with some faint bibasilar crackles otherwise no wheezing. ABDOMEN: +BS, soft, NT, ND. EXTREMITIES: No LE edema. 1+ pedal pulses. NEURO: Awake and alert. Following directions. No involuntary movements. Results 01/19/18 06:10 01/19/18 01:35 Cardiac Enzymes 01/18/18 01/19/18 01/19/18 Range/Units 20:52 01:35 06:10 AST 27 (15-37) U/L Troponin I 0.22 H 0.20 H (0.02-0.05) ng/mL B-Natriuretic Peptide 718 H (0-100) pg/mL Coagulation 01/19/18 Range/Units 06:10 B-Natriuretic Peptide 718 H (0-100) pg/mL CBC 01/19/18 Range/Units 06:10 WBC 10.1 (4.0-11.0) th/mm3 RBC 3.58 L (4.50-5.90) mil/mm3 Hgb 9.9 L (13.0-17.0) gm/dL Hct 29.9 L (39.0-51.0) % Plt Count 219 (150-450) th/mm3 Neut # (Auto) 9.7 H (1.8-7.7) th/mm3 Lymph # (Auto) 0.2 L (1.0-4.8) th/mm3 Clinch # (Auto) 0.2 (0.0-0.9) th/mm3 Eos # (Auto) 0.0 (0.0-0.4) th/mm3 Baso # (Auto) 0.0 (0.0-0.2) th/mm3 Comprehensive Metabolic Panel 01/19/18 Range/Units 01:35 Sodium 140 (136-145) meq/L Potassium 3.9 (3.5-5.1) meq/L Chloride 103 (98-107) meq/L Carbon Dioxide 29.4 (21.0-32.0) meq/L BUN 23 H (7-18) mg/dL Creatinine 1.25 (0.60-1.30) mg/dL Calcium 8.3 L (8.5-10.1) mg/dL AST 27 (15-37) U/L ALT 24 (12-78) U/L Alkaline Phosphatase 74 (45-117) U/L Total Protein 6.5 (6.4-8.2) g/dL Albumin 2.3 L (3.4-5.0) g/dL Intake and Output 01/20/18 01/20/18 01/20/18 06:59 14:59 22:59 Other: # Voids 1 - Imaging and Cardiology Imaging: Impressions Head CT 01/18/18 00:00 CONCLUSION: 1. Senescent changes with moderate periventricular ischemic white matter demyelination. 2. No acute intracranial abnormality. . Head MRI 01/19/18 00:00 CONCLUSION: 1. Bilateral cortical atrophy and chronic white matter changes. Assessment and Plan - Assessment (1) CAD (coronary artery disease), [place] coronary artery Code(s): I25.10 - Atherosclerotic heart disease of [place] coronary artery without angina pectoris Status: Acute (2) Ischemic cardiomyopathy Code(s): I25.5 - Ischemic cardiomyopathy Status: Acute (3) Aortic stenosis Code(s): I35.0 - Nonrheumatic aortic (valve) stenosis Status: Chronic (4) Systolic heart failure Code(s): I50.20 - Unspecified systolic (congestive) heart failure Status: Chronic (5) Mitral regurgitation Code(s): I34.0 - Nonrheumatic mitral (valve) insufficiency Status: Acute (6) S/P AVR Code(s): Z95.2 - Presence of prosthetic heart valve Status: Acute (7) S/P mitral valve repair Code(s): Z98.890 - Other specified postprocedural states Status: Acute (8) S/P CABG x 3 Code(s): Z95.1 - Presence of aortocoronary bypass graft Status: Acute (9) Atrial fibrillation with RVR Code(s): I48.91 - Unspecified atrial fibrillation Status: Acute (10) CHF (congestive heart failure) Code(s): I50.9 - Heart failure, unspecified Status: Acute (11) Elevated troponin Code(s): R74.8 - Abnormal levels of other serum enzymes Status: Acute - Plan 1) Weakness/deconditioning due to AFib/CHF/Recent open heart surgery 2) Involuntary tremor Better after change of meds 3) Afib/Aflutter s/p cardioversion to sinus rhythm Most likely will help with CHF Con't on Eliquis 4) Acute systolic heart failure 5) CAD s/p CABG 6) AVR with mitral valve repair
--- NOTE | 2018-01-20 16:35 | ECG ---
Date Performed: 01/20/2018 Time Performed: 13:47:08 PTAGE: 77 years EKG: Sinus bradycardia. Leftward axis IV conduction defect Lateral infarct - age undetermined Po ssible anterior infarct - age undetermined Abnormal ECG Compared to prior electrocardiogram, Unclear underlying supraventricular tachycardia has resolved. PREVIOUS TRACING : 01/19/2018 01.29 DOCTOR: Marcus Gardner Interpretating Date/Time 01/20/2018 16:34:38
[2018-01-20] MEDS: levoFLOXacin 750 MG Tablet PO SCH (20:54)
--- NOTE | 2018-01-20 20:54 | ECHRPT ---
Indication: ATRIAL FIB/FLUTTER CONCLUSIONS The left ventricular systolic function is moderately reduced with an estimated ejection fraction in the range of 40-45%. The right ventricular systoilc function is mildly decreased. Normal left atrial appendage size with no evidence of thrombus formation. Mitral valve annuloplasty ring is present. [id number] mitral valve regurgitation. Bioprosthetic AVR with no stenosis, mild aortic regurgitation with eccentric para-valvular leak. BP: / HR: Rhythm: ATRIAL FIB/FLUTTER MEASUREMENTS (Male / Female) Normal Values Technical Quality:Fair DOPPLER AI Peak Velocity 305.0 cm/s AI Pressure Half Time 801.0 ms AI Peak Gradient 37.2 mmHg Medications Complications Proc. Components Anesthesia at the bedside for sedation. FINDINGS LEFT VENTRICLE Normal left ventricular size. The left ventricular systolic function is moderately reduced with an estimated ejection fraction in the range of 40-45%. RIGHT VENTRICLE The right ventricular size is normal. The right ventricular systoilc function is mildly decreased. LEFT ATRIUM The left atrial size is mildly dilated. RIGHT ATRIUM The right atrial size is normal. ATRIAL APPENDAGES Normal left atrial appendage size with no evidence of thrombus formation. ATRIAL SEPTUM Normal atrial septal thickness without atrial level shunting by limited color doppler interrogation. MITRAL VALVE Mitral valve annuloplasty ring is present. [id number] mitral valve regurgitation. No mitral valve stenosis. AORTIC VALVE Bioprosthetic AVR with no stenosis, mild aortic regurgitation with eccentric para-valvular leak TRICUSPID VALVE The tricuspid valve is not well visualized. VESSELS The pulmonary valve is not well visualized. Clemente Howard DO (Electronically Signed) Final Date:20 January 2018 20:52
--- NOTE | 2018-01-20 20:56 | P.PCNCA ---
- Cardiology Procedure Note Procedure: Synchronized Cardioversion Procedure Date: 01/20/18 Procedure Detail: Known Afib/Aflutter which is difficult to control, as well as systolic heart failure. Currently on Eliquis BID. Discussed with him and his daughter, risks, benefits and alternatives. Informed consent obtained. Anesthesia provided sedation after TIEN. Please see TIEN report for full information, but no thrombus noted. Placed in supine position with pads in placed. Synchronized cardioversion at 200J x1 shock. Back in sinus rhythm. Tolerated the procedure well. Plan: 1) Watch overnight and if stable tomorrow possible discharge 2) Continue Eliquis 5mg BID 3) May need to decrease his medications now that he's back in sinus rhythm, will have to see
[2018-01-21] MEDS ORDERED: dilTIAZem CD 240 MG Capsule PO SCH (09:00)
[2018-01-21] MEDS: Famotidine 20 MG Tablet PO SCH (09:40)
[2018-01-21] MEDS: Amiodarone 200 MG Tablet PO SCH (09:40)
[2018-01-21] MEDS: Multivitamin/Minerals Therapeutic Tablet PO SCH (09:40)
[2018-01-21] MEDS: Senna/Docusate Sodium 8.6/50 MG Tablet PO SCH (09:40)
[2018-01-21] MEDS: Metoprolol Tartrate 25 MG Tablet PO SCH (09:40)
[2018-01-21] MEDS: predniSONE 20 MG Tablet PO SCH (09:41)
[2018-01-21] MEDS: Docusate Sodium 100 MG Capsule PO SCH (09:41)
[2018-01-21] MEDS: Budesonide-Formoterol 80/4.5 MCG 6.9 GM Inhaler INH SCH (09:45)
[2018-01-21 12:33] VITALS: BP 97/54; PULSE 55; RESP 18; TEMP 97.9; O2SAT 98
--- NOTE | 2018-01-21 13:13 | P.DS ---
Date of admission: 01/18/18 17:30 Primary care physician: No Primary Care Physician Brief History from admission: Patient is a 77-year-old gentleman. He was recently in the hospital for congestive heart failure and COPD/pneumonia. Had been here for a couple days. Was diuresed and was [facility]. Patient now returns at family's request to due to weakness that has worsened. And tremors./Shaking. And jerking. Has had some history of postoperative chest pain previously but had recently had a coronary artery bypass and graft a couple weeks ago on December 30. Patient has a history of aortic valve replacement as well as history of CABG and history of mitral valve replacement history of wrist surgery. Also coronary artery disease. Has a history of extensive tobacco abuse. Patient had been in the hospital from December 23 with a non-ST elevation [place] had the coronary artery bypass and graft as well as a an AVR and MVR on December 30. Was in the hospital until January 09 he then bounced back to January 12 with congestive heart failure was discharged back to rehab on January 15. Patient is now only having some hemorrhage and may be some slight wheezing. We will monitor over Night. Will get physical therapy and occupational therapy to eval and treat as well as case management to help with placement. Patient has a slight white blood cell count of 11.7 has a hemoglobin of 9.4 hematocrit of 29.2 DS: Medications - Discharge Medications Prescriptions: albuterol sulfate [Ventolin HFA] 2 puff INHALATION Q6H PRN #1 inhaler PRN Reason: wheezing refractory to atroven ipratropium bromide [Atrovent HFA] 1 puff INHALATION QID PRN #1 inh PRN Reason: Shortness Of Breath levofloxacin 750 mg PO Q24H #3 tab levothyroxine 25 mcg PO DAILY #30 cap lisinopril 5 mg PO DAILY #30 tab prednisone 20 mg PO DAILY #4 tab DS: Summary Hospital Course: Patient was admitted, was resumed on his course of Levaquin for which he had been prescribed for pneumonia, was given steroids for mild COPD exacerbation. Cardiology was consulted for atrial flutter with rapid rate, patient was on anticoagulation underwent TIEN cardioversion, maintained on amiodarone metoprolol and diltiazem. Patient found to be in a moderate hypothyroid state, started on low dose synthroid. Patient is to have a slow taper of his Cymbalta upon discharge. Patient ultimately did have some recovery in his overall strength and was willing to go back to rehab facility. Patient has met maximal benefit from hospitalization is clinically stable for discharge back to rehab facility. - Time Spent with Patient Total time spent providing and/or coordinating discharge services: Less than 30 minutes - Quality: VTE Deep Vein Thrombosis/Pulmonary Embolism Present on Admission: No Exam Vital signs: Vital Signs 01/20/18 15:27 01/20/18 19:52 01/20/18 20:00 Temperature 96.8 F L 97.9 F Pulse Rate 62 63 61 Respiratory Rate 16 20 Blood Pressure 96/51 L 101/57 L Pulse Oximetry 100 99 01/20/18 20:30 01/21/18 00:00 01/21/18 04:00 Temperature 97.5 F L 97.9 F Pulse Rate 78 117 H Respiratory Rate 18 19 Blood Pressure 102/78 99/69 L Pulse Oximetry 99 94 L 93 L 01/21/18 08:00 01/21/18 08:44 01/21/18 12:00 Temperature 98.7 F 97.9 F Pulse Rate 57 L 56 L 55 L Respiratory Rate 16 16 18 Blood Pressure 101/64 97/54 L Pulse Oximetry 100 100 98 Intake & Output 01/20/18 01/21/18 01/21/18 18:59 06:59 18:59 Intake Total 480 / 480 Balance 480 / 480 Intake: Oral 480 / 480 Other: # Voids 1 2 Date of Last Bowel Movement 01/20/18 Narrative: Clear lungs bilaterally, unlabored breathing Heart sounds indicated irregular rhythm, regular rate Carotid pulse at a regular rate and regular rhythm No lower extremity edema Awake and alert, no acute distress Results Procedures completed during hospitalization: TIEN synchronized cardioversion - Impressions ITS Impressions Head CT 01/18/18 00:00 CONCLUSION: 1. Senescent changes with moderate periventricular ischemic white matter demyelination. 2. No acute intracranial abnormality. . Chest X-Ray 01/18/18 14:20 CONCLUSION: 1. Perihilar infiltrates consistent with possible pulmonary vascular congestion. 2. Small left pleural effusion and tiny right pleural effusion. 3. Cardiomegaly. Head MRI 01/19/18 00:00 CONCLUSION: 1. Bilateral cortical atrophy and chronic white matter changes. Discharge Plan - Discharge Disposition Patient Disposition: 01 Discharge Home - Discharge Condition Condition: Stable - Discharge Order Discharge Orders: Discharge Order (Routine); Ordered 01/21/18 Ordered By: Scott Ball Cardiology Clear for Discharge (Routine); Ordered 01/21/18 Ordered By: Clemente Howard - Physicians Team Primary Care Provider: Primary Care Sammie Jacobsen Attending Provider: Scott Ball Other Providers: Clemente Howard, ; Ann-Marie Peterson MD ; [facility], [place]
--- NOTE | 2018-01-21 13:20 | ECG ---
Date Performed: 01/21/2018 Time Performed: 11:09:36 PTAGE: 77 years EKG: Sinus rhythm INTRAVENTRICULAR CONDUCTION DELAY LATERAL MYOCARDIAL INFARCTION No significant change from prior shree ctrocardiogram. PREVIOUS TRACING : 01/20/2018 13.47 DOCTOR: Marcus Gardner Interpretating Date/Time 01/21/2018 13:19:33
--- NOTE | 2018-01-21 15:54 | P.PNCA ---
Subjective Interval history: No events overnight No complaints Feeling better Sinus rhythm on telemetry Medications and Allergies Active Medications: Active Medications Acetaminophen (Tylenol) 650 mg PO Q4H PRN PRN Reason: Temp > 100.4 Hydrocodone Bitart/Acetaminophen ([place] 5/325) 1 tab PO Q4H PRN PRN Reason: Pain 5-10 Al Hydroxide/Mg Hydroxide (Milk Of Magnesia Liq) 30 ml PO Q12H PRN PRN Reason: Mild Constipation Albuterol (Duoneb Neb (Kemal)) 1 ampul NEB Q6HR WHILE AWAKE NEB [facility] Last Admin: 01/21/18 08:37 Dose: 1 ampul Albuterol (Duoneb Neb (Prn)) 1 ampul NEB Q2HR NEB PRN PRN Reason: SHORTNESS OF BREATH Amiodarone HCl (Cordarone) 200 mg PO DAILY [facility] Last Admin: 01/21/18 09:40 Dose: 200 mg Apixaban (Eliquis) 5 mg PO BID [facility] Last Admin: 01/21/18 09:41 Dose: 5 mg Aspirin (Ecotrin) 81 mg PO DAILY [facility] Last Admin: 01/21/18 09:40 Dose: 81 mg Atorvastatin Calcium (Lipitor) 40 mg PO HS [facility] Last Admin: 01/20/18 20:54 Dose: 40 mg Bisacodyl (Dulcolax Supp) 10 mg RECTAL DAILY PRN PRN Reason: SEVERE CONSITIPATION Budesonide/Formoterol Fumarate (Symbicort 80/4.5 Mcg Inh) 1 puff INH BID [facility] Last Admin: 01/21/18 09:45 Dose: 1 puff Diltiazem HCl (Cardizem Cd 24hr) 240 mg PO DAILY [facility] Last Admin: 01/21/18 09:40 Dose: 240 mg Docusate Sodium (Colace) 100 mg PO BID [facility] Last Admin: 01/21/18 09:41 Dose: Not Given Duloxetine HCl (Cymbalta) 40 mg PO DAILY [facility] Last Admin: 01/21/18 09:40 Dose: 40 mg Famotidine (Pepcid) 20 mg PO BID [facility] Last Admin: 01/21/18 09:40 Dose: 20 mg Lactulose (Lactulose Liq) 30 ml PO DAILY PRN PRN Reason: SEVERE CONSITIPATION Levofloxacin (Levaquin) 750 mg PO Q24H [facility] Last Admin: 01/20/18 20:54 Dose: 750 mg Levothyroxine Sodium (Synthroid) 25 mcg PO DAILY@0600 [facility] Last Admin: 01/21/18 06:09 Dose: 25 mcg Lorazepam (Ativan) 0.5 mg PO Q6H PRN PRN Reason: ANXIETY Metoprolol Tartrate (Lopressor) 25 mg PO BID [facility] Last Admin: 01/21/18 09:40 Dose: 25 mg Morphine Sulfate (Morphine Inj) 4 mg IV.PUSH Q3H PRN PRN Reason: PAIN 6-10;IF UNABLE TO TAKE PO Morphine Sulfate (Morphine Inj) 4 mg IV.PUSH Q3H PRN PRN Reason: BREAKTHROUGH PAIN Morphine Sulfate (Morphine Inj) 4 mg IV.PUSH Q1H PRN PRN Reason: Pain Scale 7-10 (Intractable) Morphine Sulfate (Morphine Inj) 2 mg IV.PUSH Q3H PRN PRN Reason: PAIN 3-5; IF UABLE TO TAKE PO Multivitamins/Minerals (Theragran-M) 1 tab PO DAILY [facility] Last Admin: 01/21/18 09:40 Dose: 1 tab Naloxone HCl (Narcan Inj) 0.4 mg IV.PUSH UNSCH PRN PRN Reason: SEE LABEL COMMENTS Naloxone HCl (Narcan Inj) 0.4 mg IV.PUSH UNSCH PRN PRN Reason: SEE LABEL COMMENTS Ondansetron HCl (Zofran Inj) 4 mg IV.PUSH Q6H PRN PRN Reason: NAUSEA OR VOMITING Oxycodone/Acetaminophen (Percocet 10/325 Mg) 1 tab PO Q6H PRN PRN Reason: PAIN SCALE 6 TO 10 Oxycodone/Acetaminophen (Percocet 5/325 Mg) 1 tab PO Q6H PRN PRN Reason: PAIN SCALE 3 TO 5 Prednisone (Deltasone) 20 mg PO DAILY [facility] Last Admin: 01/21/18 09:41 Dose: 20 mg Senna/Docusate Sodium (Nohelia-Colace) 1 tab PO BID [facility] Last Admin: 01/21/18 09:40 Dose: 1 tab Sennosides (Senokot) 17.2 mg PO Q12H PRN PRN Reason: Moderate Constipation Sodium Chloride (Ns Flush) 2 ml IV.FLUSH PRN PRN PRN Reason: FLUSH AFTER USING IV ACCESS Sodium Chloride (Ns Flush) 2 ml IV.FLUSH BID [facility] Last Admin: 01/21/18 09:41 Dose: 2 ml Torsemide (Demadex) 5 mg PO DAILY [facility] Last Admin: 01/21/18 09:40 Dose: 5 mg Vitamin D (Vitamin D3) 2,000 unit PO DAILY [facility] Last Admin: 01/21/18 09:39 Dose: 2,000 unit Allergies Allergy/AdvReac Type Severity Reaction Status Date / Time No Known Allergies Allergy Verified 01/11/18 21:21 Physical Exam Vital signs: Vital Signs 01/20/18 19:52 01/20/18 20:00 01/20/18 20:30 Temperature 97.9 F Pulse Rate 63 61 Respiratory Rate 20 Blood Pressure 101/57 L Pulse Oximetry 99 99 01/21/18 00:00 01/21/18 04:00 01/21/18 08:00 Temperature 97.5 F L 97.9 F 98.7 F Pulse Rate 78 117 H 57 L Respiratory Rate 18 19 16 Blood Pressure 102/78 99/69 L 101/64 Pulse Oximetry 94 L 93 L 100 01/21/18 08:44 01/21/18 12:00 Temperature 97.9 F Pulse Rate 56 L 55 L Respiratory Rate 16 18 Blood Pressure 97/54 L Pulse Oximetry 100 98 Intake & Output 01/20/18 01/21/18 01/21/18 18:59 06:59 18:59 Intake Total 480 / 480 Balance 480 / 480 Intake: Oral 480 / 480 Other: # Voids 1 2 Date of Last Bowel Movement 01/20/18 01/20/18 Narrative: GENERAL: WN, WD elderly male resting in bed in [facility]. SKIN: Warm and dry. Median sternotomy scar. Stage 2 sacral pressure wound. HEENT: AT/NC. Pupils equal and round. MMM. HEART: RRR LUNGS: Diminished breath sounds with some faint bibasilar crackles otherwise no wheezing. ABDOMEN: +BS, soft, NT, ND. EXTREMITIES: No LE edema. 1+ pedal pulses. NEURO: Awake and alert. Following directions. No involuntary movements. Results 01/19/18 06:10 01/19/18 01:35 Intake and Output 01/21/18 01/21/18 01/21/18 06:59 14:59 22:59 Intake Total 480 / 480 Balance 480 / 480 Intake: Oral 480 / 480 Other: # Voids 2 Date of Last Bowel Movement 01/20/18 Assessment and Plan - Assessment (1) CAD (coronary artery disease), [place] coronary artery Code(s): I25.10 - Atherosclerotic heart disease of [place] coronary artery without angina pectoris Status: Acute (2) Ischemic cardiomyopathy Code(s): I25.5 - Ischemic cardiomyopathy Status: Acute (3) Aortic stenosis Code(s): I35.0 - Nonrheumatic aortic (valve) stenosis Status: Chronic (4) Systolic heart failure Code(s): I50.20 - Unspecified systolic (congestive) heart failure Status: Chronic (5) Mitral regurgitation Code(s): I34.0 - Nonrheumatic mitral (valve) insufficiency Status: Acute (6) S/P AVR Code(s): Z95.2 - Presence of prosthetic heart valve Status: Acute (7) S/P mitral valve repair Code(s): Z98.890 - Other specified postprocedural states Status: Acute (8) S/P CABG x 3 Code(s): Z95.1 - Presence of aortocoronary bypass graft Status: Acute (9) Atrial fibrillation with RVR Code(s): I48.91 - Unspecified atrial fibrillation Status: Acute (10) CHF (congestive heart failure) Code(s): I50.9 - Heart failure, unspecified Status: Acute (11) Elevated troponin Code(s): R74.8 - Abnormal levels of other serum enzymes Status: Acute - Plan 1) Weakness/deconditioning due to AFib/CHF/Recent open heart surgery 2) Involuntary tremor Better after change of meds Possible nebulizer induced 3) Afib/Aflutter s/p cardioversion to sinus rhythm Most likely will help with CHF Con't on Eliquis 4) Acute systolic heart failure 5) CAD s/p CABG 6) AVR with mitral valve repair 7) Agree with sending to [facility] (10) CHF (congestive heart failure) Qualifiers: Heart failure type: systolic Heart failure chronicity: acute on chronic Qualified Code(s): I50.23 - Acute on chronic systolic (congestive) heart failure
== END 2018-01-21 15:26 | disposition home or self-care (01) ==
LOC: NEPE 12:04 → NEDA 12:04 → NEPGCP 19:30
PROVIDERS: ADMIT Hospitalist; ATTEND Hospitalist